=== PATIENT | male | born 1970 | race Caucasian/White ===

== ENCOUNTER 2017-08-18 04:16 | Observation (INO) | payer OTHER ==
[~2017-08-18] VITALS: Ht 190.5 cm; Wt 118.4 kg
[2017-08-18] MEDS ORDERED: ONDANSETRON HCL 4 MG ORAL DISINTEGRATING TAB PO ONE (04:30)
[2017-08-18] MEDS ORDERED: SODIUM CHLORIDE 0.9% 1000ML 1,000 ML IV ONE (04:30)
[2017-08-18 04:39] LABS: BASOPHILS # (AUTO) 0.1 (0.0-0.1); BASOPHILS % 0.5 % (0.0-1.0); EOSINOPHILS # (AUTO) 0.1 (0.0-0.4); EOSINOPHILS % 0.5 % (0.0-6.0); HEMATOCRIT 41.8 % (38.2-49.6); HEMOGLOBIN 15.4 g/dL (14.0-18.0); LYMPHOCYTES # (AUTO) 1.4 (1.0-3.2); MEAN CORPUSCULAR HEMOGLOBIN 35.4 pg (28-32); MEAN CORPUSCULAR HGB CONC 36.8 g/dL (31-35); MEAN CORPUSCULAR VOLUME 96.1 fL (81-99); MONOCYTES # (AUTO) 1.8 (0.2-0.8); MONOCYTES % 19.1 % (4.4-11.3); NEUTROPHILS % 63.6 % (38.7-80.0); PLATELET COUNT 231 x10e3/uL (140-360); RED BLOOD COUNT 4.35 x10e6/uL (4.3-5.7); RED CELL DISTRIBUTION WIDTH 13.1 % (11.7-14.4)
[2017-08-18 04:44] LABS: CLARITY,URINE CLEAR (CLEAR); COLOR,URINE YELLOW (YELLOW); KETONES,URINE 1+ (NEGATIVE); LEUKOCYTE ESTERASE ,URINE NEGATIVE (NEGATIVE); NITRITE,URINE NEGATIVE (NEGATIVE); PROTEIN,URINE DIPSTICK NEGATIVE (NEGATIVE); URINE UROBILINOGEN 0.2 mg/dL (0.2 - 1)
[2017-08-18 04:45] LABS: BILIRUBIN,URINE 1+ (NEGATIVE)
[2017-08-18 04:52] LABS: BACTERIA,URINE FEW /HPF; EPITHELIAL CELLS,URINE FEW /LPF; RBC,URINE 0-5 /HPF (0-5); WBC,URINE (MAN) 0-5 /HPF (0-5)
[2017-08-18 04:59] LABS: ALANINE AMINOTRANSFERASE 34 IU/L (0-55); ALBUMIN 3.8 g/dL (3.5-5.0); ALKALINE PHOSPHATASE 79 IU/L (40-150); ANION GAP 21.7 mmol/L (8-16); BLOOD UREA NITROGEN 10 mg/dL (7-26); BUN/CREATININE RATIO 10 (6-25); CALCIUM 9.9 mg/dL (8.4-10.2); CARBON DIOXIDE 20 mmol/L (22-29); CHLORIDE 96 mmol/L (98-107); CREATININE, SERUM 1.02 mg/dL (0.72-1.25); EST GLOMERULAR FILTRATION RATE > 60 ML/MIN (60-); GLUCOSE 176 mg/dL (74-118); POTASSIUM 3.7 mmol/L (3.5-5.1); SODIUM 134 mmol/L (136-145)
[2017-08-18] MEDS ORDERED: ONDANSETRON HCL 4 MG ORAL DISINTEGRATING TAB PO PRN (05:15)
[2017-08-18] MEDS ORDERED: DEXTROSE 50% SYRINGE 50 ML IV PRN (05:15)
[2017-08-18] MEDS: DEXAMETHASONE SOD PHOS INJ 4 MG/ML VIAL IV SCH ×3 (06:17→22:26)
[2017-08-18] MEDS: SODIUM CHLORIDE 0.9% 1000ML 1,000 ML IV SCH ×2 (06:17→12:06)
[2017-08-18 06:40] VITALS: BP 156/97
[2017-08-18 07:45] VITALS: BP 156/97
[2017-08-18] MEDS: INSULIN REGULAR, HUMAN 100 UNIT/1 ML 3ML VIAL SQ SCH ×4 (07:59→21:00)
[2017-08-18] MEDS: METOCLOPRAMIDE HCL 10 MG TAB PO SCH ×4 (09:00→20:30)
[2017-08-18] MEDS ORDERED: GADOBENATE DIMEGLUMINE 1 ML IV ONE (09:32)
[2017-08-18] MEDS: HYDROCODONE/APAP 7.5MG-325MG 1 EA TAB PO PRN ×3 (11:04→22:26)
--- NOTE | 2017-08-18 12:00 | Diagnostic Imaging Report ---
Exam: Brain MRI without and with IV contrast History: Evaluate for metastases response to chemotherapy, sinus cancer Comparison studies: None Technique: Precontrast sagittal and axial T2 FS, axial T1 FLAIR and axial T2*GRE. Post contrast axial T2 FLAIR and axial, coronal and sagittal T1 FS. Intravenous contrast: 20 cc MultiHance. Findings: Per reported history, patient is with history of sinus cancer. The patient appears to have undergone previous endoscopic sinonasal surgery with bilateral medial antrostomies, partial ethmoidectomies bilateral middle turbinate reduction possibly bilateral sphenoid sinusotomies. There is reactive nonspecific inflammatory mucosal thickening throughout the ethmoids, maxillary sinuses and sphenoid sinuses with bilateral maxillary sinus retention cysts and secretions throughout the ethmoids and sphenoid sinuses. There is enhancing soft tissue which presumably reflects tumor within the ethmoid cavity extend to the sphenoid cavity, along the cribriform plate, planum sphenoidale and sella which presumably reflects tumor. Enhancing tissue/presumed tumor extends into the cavernous sinuses bilaterally and into the sella. The pituitary infundibulum is also thickened. Soft tissue local extends into the extraconal space and orbit posteriorly on the left where it infiltrates the extraocular muscles near the orbital apex and encases the left orbital nerve at the orbital apex and within its intracanalicular segment. The left intracanalicular and intracranial optic nerve is enhancing which may be reactive due to left optic neuropathy. Please note, cannot adequately differentiate tumor from infection in this context. A 2.2 x 1.9 x 2.5 cm (SI x AP x TV) enhancing lesion with central arthrosis in the right temporal lobe is with moderate surrounding edema. Mass effect remains local with only mild effacement on the temporal horn of the right lateral ventricle. There are additional similar smaller enhancing lesions with surrounding vasogenic edema along the bilateral gyri recti and olfactory gyri of the anterior inferior frontal lobes. The largest of these lesions measures 0.9 x 1.7 x 0.6 cm (SI x AP x TV) along the right gyrus rectus. These lesions are without associated restricted diffusion. Though these lesions may reflect direct extension of metastatic disease through the right cavernous sinus/sinonasal cavity and anterior cranial fossa respectively, infection with nonpyrogenic abscesses and cerebritis related to superimposed sinusitis cannot be differentiated. There is reactive dural enhancement along the medial temporal convexities along the cavernous sinuses as well as along the left inferior frontal and anterolateral left temporal convexity. Enhancement within the left sphenoid wing may reflect metastasis in the clinical setting of sinonasal cancer. Enhancement in the basisphenoid of the clivus with associated retroclival dural enhancement may also reflect metastatic disease, though again difficult to differentiate from infection. No acute ischemia. A nonspecific 3 focus of increased susceptibility/decreased signal on T2*GRE sequence in the right putamen may reflect dystrophic mineralization or possibly small hemorrhage. The right temporal horn is partially effaced as described above. The remaining lateral, third and fourth ventricles are mildly dilated without evidence of acute hydrocephalus. Suprasellar region: No abnormalities. Craniocervical junction: Patent foramen magnum. No Chiari one malformation. Vessels: Normal flow-voids in the arteries and sinuses. Incidental findings: Nonspecific reactive T2 hyperintense changes in the mastoids. IMPRESSION: 1. Changes of sinonasal surgery with nonspecific reactive changes throughout the paranasal sinuses and ill-defined enhancing sinonasal mass/presumed tumor which infiltrates the floor of the anterior cranial fossa, left orbit, central skull base, sella, pituitary infundibulum and bilateral cavernous sinuses as described. Moreover, sinonasal/skull base infection cannot be differentiated from tumor in this context. 2. Enhancing lesions in the right temporal lobe and anterior inferior frontal lobes with surrounding vasogenic edema may reflect metastatic disease. Moreover, superimposed infection with nonpyogenic abscesses, meningitis and cerebritis could have this appearance. Mass effect remains local. No herniation. 3. Mild ventriculomegaly. No acute hydrocephalus. Clinical correlation is recommended. Comparison with any prior available outside imaging may also be helpful. Signed by: Dr. Joe Arana M.D. on 08/18/2017 11:56 AM
[2017-08-18 12:04] VITALS: BP 139/87
[2017-08-18] MEDS: PIPER-TAZ 3.375 GM 50 ML IV SCH ×2 (14:30→20:30)
[2017-08-18] MEDS: INSULIN DETEMIR 100 UNIT/ML PEN SQ SCH ×2 (15:11→21:00)
--- NOTE | 2017-08-18 15:24 | History and Physical ---
PRIMARY CARE PROVIDER: Dr. Kenan Veras, following him for sinus cancer. CHIEF COMPLAINT: Recalcitrant nausea, vomiting and dehydration. HISTORY OF PRESENT ILLNESS: Mr. Logan is a 46-year-old gentleman who had his last chemo for sinus cancer about 2 weeks ago. He has had recalcitrant nausea and vomiting for 10 days and unable to keep anything down, becoming dehydrated. REVIEW OF SYSTEMS: He denies fever, chills or weight loss. He has sinus congestion. He denies sore throat. He denies chest pain or palpitations. He denies shortness of breath, wheezing or cough. He denies abdominal pain, but he does have nausea and vomiting. He denies diarrhea, melena, hematemesis or hematochezia. He denies dysuria or flank pain. He denies rash or pruritus. He denies bleeding or bruising. He has a headache. He denies vertigo. He denies syncope or focal weakness. He denies depression, agitation, homicidal or suicidal ideation. PAST MEDICAL HISTORY: Significant for longstanding, type-2 diabetes. He apparently does not take any medication for that. Sinus cancer diagnosed in 2012. He had extensive resection at that time followed by radiation and chemotherapy and was in remission for a while. It has recurred in the last year. He now has stage 4 with local recurrence as well as what appears to be a new brain met. MEDICATIONS: He lists no home medications. SURGICAL HISTORY: Aside from the sinus surgery, many years ago he had orthopedic surgery on both ankles for fracture. ALLERGIES: HE HAS NO KNOWN DRUG ALLERGIES. FAMILY HISTORY: Unremarkable. SOCIAL HISTORY: The patient is . Amharic is his primary language. He does not smoke, drink or use illegal drugs. He is generally independently functioning. PHYSICAL EXAMINATION PSYCHIATRIC: He is alert and oriented times 3 with normal mood and affect. CONSTITUTIONAL: He has a normal body habitus. He is in no acute distress. VITAL SIGNS: Blood pressure 139/87. Pulse 100 and regular. Respiratory rate 16. O2 sat 94%. Temperature 96.4. HEENT: Head is atraumatic. His eyes are anicteric. His oropharynx is clear. NECK: Supple with no mass or thyromegaly. LYMPHATIC SYSTEM: He has no palpable cervical, axillary or inguinal adenopathy. CARDIOVASCULAR: His heart has regular rate and rhythm without murmur or extra heart sound. He has no carotid bruit. He has no peripheral edema. He has palpable dorsal pedal pulses. RESPIRATORY: Lungs are clear to auscultation and percussion with normal respiratory effort. GASTROINTESTINAL: Abdomen is soft without organomegaly, masses or tenderness. He has normal bowel sounds present. CUTANEOUS: His skin is warm and dry to touch. No rash or skin breakdown. MUSCULOSKELETAL: His joints are in normal alignment without erythema or swelling. He has no calf tenderness. NEUROLOGIC: Exam is nonfocal. 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 He is otherwise nonfocal with intact cranial nerves and no motor or sensory deficits. DIAGNOSTIC STUDIES: MRI scan of the brain shows extensive changes in the sinuses consistent with old surgery, possible recurrent tumor, cannot rule out sinus infection. Also shows a right temporal lobe metastasis with some surrounding vasogenic edema. His UA is clear. Chemistry shows normal electrolytes. CO2 is 20. Creatinine 1.02 and BUN 10 for a normal GFR. Glucose is 176. Calcium 9.9. His transaminases, bilirubin and alk phos are normal. CBC shows a white count 9.37 with a normal differential. Hemoglobin 15.4, hematocrit 41.8 and platelet count 231,000. IMPRESSION AND PLAN 1. Recalcitrant nausea and vomiting with dehydration. The patient has received about 3 liters of IV fluids. He is starting to feel better. The patient was placed on Pepcid and Reglan. His nausea has improved, and he is started on a clear liquid diet. Will advance as tolerated. 2. Sinus cancer, stage IV. The patient is being followed by oncology. They have been consulted. Will defer to them. 3. What appears to be a new brain metastasis. The patient has been started on dexamethasone 4 mg q.8 h. and, again, oncology has been consulted. 4. Sinusitis. The patient has been started on IV Zosyn empirically. 5. Type-2 diabetes. The patient has been started on Levemir and sliding scale insulin. 6. For prophylaxis, the patient will be on Pepcid for GI prophylaxis and SCDs for DVT prophylaxis. No anticoagulation due to the brain met. Job#: [id number]
[2017-08-18 16:05] VITALS: BP 136/92
[2017-08-18] MEDS: FAMOTIDINE 20 MG TAB PO SCH (17:48)
[2017-08-18 20:00] VITALS: BP 156/99
[2017-08-18] MEDS ORDERED: SODIUM CHLORIDE 0.9% 250ML 250 ML ONE (20:15)
[2017-08-19] VITALS (8 sets, daily range): BP systolic 124–159; BP diastolic 60–97
[2017-08-19] MEDS: PIPER-TAZ 3.375 GM 50 ML IV SCH ×4 (02:16→20:53)
[2017-08-19] MEDS: DEXAMETHASONE SOD PHOS INJ 4 MG/ML VIAL IV SCH ×3 (05:24→21:07)
[2017-08-19 07:19] LABS: BASOPHILS % 0.3 % (0.0-1.0); HEMATOCRIT 36.1 % (38.2-49.6); HEMOGLOBIN 13.3 g/dL (14.0-18.0); LYMPHOCYTES # (AUTO) 0.3 (1.0-3.2); LYMPHOCYTES % 4.2 % (18.0-39.1); MEAN CORPUSCULAR HEMOGLOBIN 35.6 pg (28-32); MEAN CORPUSCULAR HGB CONC 36.8 g/dL (31-35); MEAN CORPUSCULAR VOLUME 96.5 fL (81-99); MONOCYTES # (AUTO) 0.6 (0.2-0.8); MONOCYTES % 8.1 % (4.4-11.3); NEUTROPHILS # (AUTO) 6.9 (2.1-6.9); NEUTROPHILS % 86.9 % (38.7-80.0); PLATELET COUNT 201 x10e3/uL (140-360); RED BLOOD COUNT 3.74 x10e6/uL (4.3-5.7)
[2017-08-19] MEDS: INSULIN REGULAR, HUMAN 100 UNIT/1 ML 3ML VIAL SQ SCH ×4 (07:30→20:56)
[2017-08-19 07:43] LABS: ALANINE AMINOTRANSFERASE 24 IU/L (0-55); ALBUMIN 3.6 g/dL (3.5-5.0); ALBUMIN/GLOBULIN RATIO 1.1 (0.8-2.0); ALKALINE PHOSPHATASE 66 IU/L (40-150); BLOOD UREA NITROGEN 11 mg/dL (7-26); BUN/CREATININE RATIO 10 (6-25); CALCIUM 9.6 mg/dL (8.4-10.2); CARBON DIOXIDE 23 mmol/L (22-29); CHLORIDE 104 mmol/L (98-107); CREATININE, SERUM 1.15 mg/dL (0.72-1.25); EST GLOMERULAR FILTRATION RATE > 60 ML/MIN (60-); GLUCOSE 218 mg/dL (74-118); SODIUM 137 mmol/L (136-145)
[2017-08-19 07:48] LABS: THYROID STIMULATING HORMONE 0.002 uIU/mL (0.350-4.940)
[2017-08-19] MEDS: FAMOTIDINE 20 MG TAB PO SCH ×2 (08:12→15:43)
[2017-08-19] MEDS: INSULIN DETEMIR 100 UNIT/ML PEN SQ SCH ×2 (08:12→20:54)
[2017-08-19] MEDS: METOCLOPRAMIDE HCL 10 MG TAB PO SCH ×4 (08:12→20:53)
[2017-08-19] MEDS: HYDROCODONE/APAP 7.5MG-325MG 1 EA TAB PO PRN (14:14)
[2017-08-20] VITALS: BP 136/85
[2017-08-20] MEDS: PIPER-TAZ 3.375 GM 50 ML IV SCH ×2 (01:41→08:47)
[2017-08-20] MEDS: HYDROCODONE/APAP 7.5MG-325MG 1 EA TAB PO PRN ×2 (02:45→08:54)
[2017-08-20 04:00] VITALS: BP 136/88
[2017-08-20] MEDS: DEXAMETHASONE SOD PHOS INJ 4 MG/ML VIAL IV SCH (05:43)
[2017-08-20 06:50] LABS: BASOPHILS % 0.1 % (0.0-1.0); HEMATOCRIT 33.3 % (38.2-49.6); HEMOGLOBIN 12.3 g/dL (14.0-18.0); LYMPHOCYTES # (AUTO) 0.5 (1.0-3.2); LYMPHOCYTES % 3.6 % (18.0-39.1); MEAN CORPUSCULAR HEMOGLOBIN 35.8 pg (28-32); MEAN CORPUSCULAR HGB CONC 36.9 g/dL (31-35); MEAN CORPUSCULAR VOLUME 96.8 fL (81-99); MONOCYTES # (AUTO) 0.9 (0.2-0.8); MONOCYTES % 6.5 % (4.4-11.3); NEUTROPHILS # (AUTO) 11.9 (2.1-6.9); NEUTROPHILS % 88.9 % (38.7-80.0); PLATELET COUNT 198 x10e3/uL (140-360); RED BLOOD COUNT 3.44 x10e6/uL (4.3-5.7); RED CELL DISTRIBUTION WIDTH 13.2 % (11.7-14.4)
[2017-08-20 07:16] LABS: ANION GAP 13.1 mmol/L (8-16); BLOOD UREA NITROGEN 15 mg/dL (7-26); BUN/CREATININE RATIO 13 (6-25); CALCIUM 9.8 mg/dL (8.4-10.2); CARBON DIOXIDE 25 mmol/L (22-29); CHLORIDE 103 mmol/L (98-107); CREATININE, SERUM 1.13 mg/dL (0.72-1.25); EST GLOMERULAR FILTRATION RATE > 60 ML/MIN (60-); GLUCOSE 142 mg/dL (74-118); MAGNESIUM 1.9 MG/DL (1.3-2.1); POTASSIUM 4.1 mmol/L (3.5-5.1); SODIUM 137 mmol/L (136-145)
[2017-08-20] MEDS: INSULIN REGULAR, HUMAN 100 UNIT/1 ML 3ML VIAL SQ SCH (07:30)
[2017-08-20 07:34] LABS: FREE T4 (FREE THYROXINE) 1.31 ng/dL (0.9-1.8)
[2017-08-20 08:00] VITALS: BP 133/83
[2017-08-20 08:45] VITALS: BP 133/83
[2017-08-20] MEDS: FAMOTIDINE 20 MG TAB PO SCH (08:47)
[2017-08-20] MEDS: INSULIN DETEMIR 100 UNIT/ML PEN SQ SCH (08:47)
[2017-08-20] MEDS: METOCLOPRAMIDE HCL 10 MG TAB PO SCH (08:47)
[2017-08-20] MEDS ORDERED: DEXAMETHASONE4 MG PO (09:35)
[2017-08-20] MEDS ORDERED: AUGMENTIN 875-1 EACH PO (09:35)
[2017-08-20] MEDS ORDERED: TYLENOL # 31 EA PO (09:35)
--- NOTE | 2017-08-20 18:31 | Discharge Summary ---
ADMISSION DIAGNOSES 1. Recalcitrant nausea and vomiting with dehydration. 2. Sinus cancer, stage IV. 3. Possible new brain mets. 4. Sinusitis. 5. Type 2 diabetes. DISCHARGE DIAGNOSES 1. Recalcitrant nausea and vomiting with dehydration. 2. Sinus cancer, stage IV. 3. Possible new brain mets. 4. Sinusitis. 5. Type 2 diabetes. 6. Anemia. HISTORY: The patient has a history of hypertension, type 2 diabetes, sinus cancer diagnosed in 2012. He had an extensive resection followed by radiation and then chemo, and was in remission for a while. It has recurred in the last year or so. He now has stage IV with local recurrence, as well as what appears to be a new brain mets. HOSPITAL COURSE: A 46-year-old male who had his chemo for sinus cancer about 2 weeks ago, now has nausea and vomiting for 10 days, and unable to keep anything down, which is causing him to become dehydrated. The patient was started on Pepcid, Reglan and IV fluids. He is tolerating a regular diet prior to discharge. Oncology was consulted for sinus cancer and brain mets. He was also started on dexamethasone 4 mg q.8 h. He will continue those until he follows with oncology next Friday. He was started on IV Zosyn empirically for sinusitis, but was discharged on Augmentin for 10 more days. He will continue his same diabetes medications. On admission, MRI of the brain showed enhancing lesions in the right temporal lobe and anterior inferior frontal lobes with surrounding vasogenic edema, which may reflect metastatic disease. WBC on discharge is 13.33 likely due to steroids. The patient is afebrile. Hemoglobin 12.3, hematocrit 33.3. Sodium 137, potassium 4.1, creatinine 1.13, GFR of over 30. The patient is tolerating diet and ready to go home. He will follow up with oncology on Friday and primary care as needed. DICTATED BY NANDO ROBINS NP RAFAL BOWMAN MD Job#: [id number] [place]
== END 2017-08-20 10:00 | disposition home or self-care (01) ==
LOC: ER 04:16 → ERHOLD 05:20 → MED/SURG3 06:27
PROVIDERS: ADMIT Internal Medicine; ATTEND Internal Medicine
DX: E86.0 Dehydration (principal); R11.2 Nausea with vomiting, unspecified; C31.9 Malignant neoplasm of accessory sinus, unspecified; C79.31 Secondary malignant neoplasm of brain; E11.9 Type 2 diabetes mellitus without complications; J32.9 Chronic sinusitis, unspecified; R51 Headache
CPT/HCPCS: 36415 ×2; 80048; 80053; 82948 ×2; 83735; 84439; 84443; 85025 ×2; 96374; 99284; G0378 ×3; J1100 ×3; J2543 ×3; J7030; J7050

== ENCOUNTER 2017-08-31 17:34 | Emergency (ER) | payer OTHER ==
[~2017-08-31] VITALS: Ht 190.5 cm; Wt 118.8 kg
[~2017-08-31 17:34] MED LIST: AUGMENTIN 875-1 EACH PO; DEXAMETHASONE4 MG PO; TYLENOL # 31 EA PO
--- OUTSIDE RECORDS SUMMARY | 2017-08-31 17:36 | XMS REPORT ---
Author Author [facility] Address Unknown Phone Unavailable Care Team Providers Care [employer] St[employer] And Rep[employer]r Name Role Phone RAFAL BOWMAN Unavailable Unavailable Problems This patient has no known problems. Allergies, Adverse Reactions, Alerts This patient has no known allergies or adverse reactions. Medications This patient has no known medications. Results Test Description Test Time Test Comments Text Results Atomic Results Result Comments MRI BRAIN WOW [place] [address] Patient Name: NISHANT CASAS MR #: [id number] : 1970 Age/Sex: 46/M Req # : [id number] Adm Physician: RAFAL BOWMAN MD Ordered by: BHARGAVI ANDERSEN MD Report #: [id number] Location: MED/SURG3 Room/Bed: [facility] ____ Procedure: [id number] MRI/MRI BRAIN WOW Exam Date: Exam Time: REPORT STATUS: Signed Exam: Brain MRI without and with IV contrast History: Evaluate for metastases response to chemotherapy, sinus cancer Comparison studies: None Technique: Precontrast sagittal and axial T2 FS, axial T1 FLAIR and axial T2*GRE. Post contrast axial T2 FLAIR and axial, coronal and sagittal T1 FS. Intravenous contrast: 20 cc MultiHance. Findings: Per reported history, patient is with history of sinus cancer. The patient appears to have undergone previous endoscopic sinonasal surgery with bilateral medial antrostomies, partial ethmoidectomies bilateral middle turbinate reduction possibly bilateral sphenoid sinusotomies. There is reactive nonspecific inflammatory mucosal thickening throughout the ethmoids, maxillary sinuses and sphenoid sinuses with bilateral maxillary sinus retention cysts and secretions throughout the ethmoids and sphenoid sinuses. There is enhancing soft tissue which presumably reflects tumor within the ethmoid cavity extend to the sphenoid cavity, along the cribriform plate, planum sphenoidale and sella which presumably reflects tumor. Enhancing tissue/presumed tumor extends into the cavernous sinuses bilaterally and into the sella. The pituitary infundibulum is also thickened. Soft tissue local extends into the extraconal space and orbit posteriorly on the left where it infiltrates the extraocular muscles near the orbital apex and encases the left orbital nerve at the orbital apex and within its intracanalicular segment. The left intracanalicular and intracranial optic nerve is enhancing which may be reactive due to left optic neuropathy. Please note, cannot adequately differentiate tumor from infection in this context. A 2.2 x 1.9 x 2.5 cm (SI x AP x TV) enhancing lesion with central arthrosis in the right temporal lobe is with moderate surrounding edema. Mass effect remains local with only mild effacement on the temporal horn of the right lateral ventricle. There are additional similar smaller enhancing lesions with surrounding vasogenic edema along the bilateral gyri recti and olfactory gyri of the anterior inferior frontal lobes. The largest of these lesions measures 0.9 x 1.7 x 0.6 cm (SI x AP x TV ) along the right gyrus rectus. These lesions are without associated restricted diffusion. Though these lesions may reflect direct extension of metastatic disease through the right cavernous sinus/sinonasal cavity and anterior cranial fossa respectively, infection with nonpyrogenic abscesses and cerebritis related to superimposed sinusitis cannot be differentiated. There is reactive dural enhancement along the medial temporal convexities along the cavernous sinuses as well as along the left inferior frontal and anterolateral left temporal convexity. Enhancement within the left sphenoid wing may reflect metastasis in the clinical setting of sinonasal cancer. Enhancement in the basisphenoid of the clivus with associated retroclival dural enhancement may also reflect metastatic disease, though again difficult to differentiate from infection. No acute ischemia. A nonspecific 3 focus of increased susceptibility/decreased signal on T2*GRE sequence in the right putamen may reflect dystrophic mineralization or possibly small hemorrhage. The right temporal horn is partially effaced as described above. The remaining lateral, third and fourth ventricles are mildly dilated without evidence of acute hydrocephalus. Suprasellar region: No abnormalities. Craniocervical junction: Patent foramen magnum. No Chiari one malformation. Vessels: Normal flow-voids in the arteries and sinuses. Incidental findings: Nonspecific reactive T2 hyperintense changes in the mastoids. IMPRESSION : 1. Changes of sinonasal surgery with nonspecific reactive changes throughout the paranasal sinuses and ill-defined enhancing sinonasal mass/ presumed tumor which infiltrates the floor of the anterior cranial fossa, left orbit, central skull base, sella, pituitary infundibulum and bilateral cavernous sinuses as described. Moreover, sinonasal/skull base infection cannot be differentiated from tumor in this context. 2. Enhancing lesions in the right temporal lobe and anterior inferior frontal lobes with surrounding vasogenic edema may reflect metastatic disease. Moreover, superimposed infection with nonpyogenic abscesses, meningitis and cerebritis could have this appearance. Mass effect remains local. No herniation. 3. Mild ventriculomegaly. No acute hydrocephalus. Clinical correlation is recommended. Comparison with any prior available outside imaging may also be helpful. Signed by: Dr. Josh Arana M.D. on 08/18/2017 11:56 AM Dictated By: JOSH ARANA MD 1151 Transcribed By: NEVILLE on 08/18/17 1152 COPY TO: BHARGAVI ANDERSEN MD
--- OUTSIDE RECORDS SUMMARY | 2017-08-31 17:36 | XMS REPORT | Continuity of Care Document ---
Author Author [facility] Organization [facility] Address [address] [place] [address] Phone Unavailable Care Team Providers Care Nursing Home Director Name Role Phone NO, PCP PCP Unavailable Advance Directives Directive Response Recorded Date/Time Does the patient have an advance directive? No 08/18/17 7:30am If yes, is advance directive on file with [facility]? No 08/18/17 5:09am If not on file with [facility] will patient provide a copy? No 08/18/17 5:09am Do you have a Directive to Physician? No 08/18/17 5:09am Do you have a Medical Power of [employer] Consultant? No 08/18/17 5:09am Do you have an out of hospital Do Not Resuscitate Order? No 08/18/17 5:09am Do you have any special needs we should be aware of? No 08/18/17 5:09am Do you have a support person here with you today? Yes 08/18/17 5:09am Did patient receive Notice of Privacy Practices? Yes 08/18/17 5:09am Did patient receive patient rights and responsibilities? Yes 08/18/17 5:09am Problems Medical Problem Onset Date Status Dehydration Unknown Vomiting Unknown Medications Current Home Medications Medication Dose Units Route Directions Days Qty Instructions Start Date Acetaminophen/Codeine Phosphate (Tylenol # 3*) 1 Ea Tab 1 Tab Oral Every 12 Hours as needed for Pain 30 08/20/17 Amoxicillin/Potassium Clav (Augmentin 875-125 Tablet) 1 Each Tablet 875 Mg Oral Twice A Day 10 Days 08/20/17 Dexamethasone 4 Mg Tablet 4 Mg Oral Every 8 Hours 7 Days 08/20/17 Social History Social History Problem Response Recorded Date/Time Onset Date Status Hx Psychiatric Problems No 08/18/2017 7:30am Not Applicable Not Applicable Hx Eating Disorder No 08/18/2017 7:30am Not Applicable Not Applicable Hx Substance Use Disorder No 08/18/2017 7:30am Not Applicable Not Applicable Hx Depression No 08/18/2017 7:30am Not Applicable Not Applicable Hx Alcohol Use Y - states "haven't had a drink in awhile now." 08/18/2017 7: 30am Not Applicable Not Applicable Hx Substance Use Treatment No 08/18/2017 7:30am Not Applicable Not Applicable Hx Physical Abuse No 08/18/2017 7:30am Not Applicable Not Applicable Smoking Status Start Date Stop Date Never Smoker Hospital Discharge Instructions No hospital discharge instruction information available. Plan of Care Discharge Date 08/20/17 10:00am Disposition HOME, SELF-CARE Instructions/Education Provided Dehydration - Adult Sinusitis - Acute Prescriptions See Medication Section Referrals (Oncology) Order Date: 5-7 Days Entered Date: 08/20/2017 9:36am Additional Instructions/Education GI SOFT DIET (NO SPICY FOODS) ACTIVITIES TOLERATED FOLLOW UP WITH ONCOLOGY BY FRIDAY Functional Status Query Response Date Recorded Assistive Devices None August 18, 2017 7:45am Ambulation Ability Standby Assistance August 18, 2017 7:45am Toileting Ability Independent August 18, 2017 7:45am Allergies, Adverse Reactions, Alerts No known allergies. Immunizations No immunization information available. Vital Signs Acute Vital Signs Vital Response Date/Time Temperature (Fahrenheit) 96.5 degrees F (97.6 - 99.5) 08/20/2017 8:45am Pulse Pulse Rate (adult) 67 bpm (60 - 90) 08/20/2017 8:45am Respiratory Rate 18 bpm (12 - 24) 08/20/2017 8:45am Blood Pressure 133/83 mm Hg 08/20/2017 8:45am Height 6 ft 3 in 08/18/2017 4:21am Weight 261.01 lb 08/18/2017 7:30am Body Mass Index 32.6 kg/m^2 08/18/2017 7:30am Results Laboratory Results Test Name Result Units Flags Reference Collection Date/Time Result Date/ Time Comments White Blood Count 13.33 x10e3/uL # H 4.8-10.8 08/20/2017 6:2017 6:56am Red Blood Count 3.44 x10e6/uL L 4.3-5.7 08/20/2017 6:08/20/2017 6: 56am Hemoglobin 12.3 g/dL L 14.0-18.0 08/20/2017 6:08/20/2017 6:56am Hematocrit 33.3 % L 38.2-49.6 08/20/2017 6:08/20/2017 6:56am Mean Corpuscular Volume 96.8 fL 81-99 08/20/2017 6:08/20/2017 6: 56am Mean Corpuscular Hemoglobin 35.8 pg H 28-32 08/20/2017 6:2017 6:56am Mean Corpuscular Hemoglobin Concent 36.9 g/dL H 31-35 08/20/2017 6:08/20/2017 6:56am Red Cell Distribution Width 13.2 % 11.7-14.4 08/20/2017 6:2017 6:56am Platelet Count 198 x10e3/uL 140-360 08/20/2017 6:08/20/2017 6: 56am Neutrophils (%) (Auto) 88.9 % H 38.7-80.0 08/20/2017 6:08/20/2017 6 :56am Lymphocytes (%) (Auto) 3.6 % L 18.0-39.1 08/20/2017 6:08/20/2017 6: 56am Monocytes (%) (Auto) 6.5 % 4.4-11.3 08/20/2017 6:08/20/2017 6: 56am Eosinophils (%) (Auto) 0.0 % 0.0-6.0 08/20/2017 6:08/20/2017 6: 56am Basophils (%) (Auto) 0.1 % 0.0-1.0 08/20/2017 6:08/20/2017 6:56am IM GRANULOCYTES % 0.9 % 0.0-1.0 08/20/2017 6:08/20/2017 6:56am Neutrophils # (Auto) 11.9 H 2.1-6.9 08/20/2017 6:08/20/2017 6: 56am Lymphocytes # (Auto) 0.5 L 1.0-3.2 08/20/2017 6:08/20/2017 6: 56am Monocytes # (Auto) 0.9 H 0.2-0.8 08/20/2017 6:08/20/2017 6:56am Eosinophils # (Auto) 0.0 0.0-0.4 08/20/2017 6:08/20/2017 6:56am Basophils # (Auto) 0.0 0.0-0.1 08/20/2017 6:08/20/2017 6:56am Absolute Immature Granulocyte (auto 0.12 x10e3/uL H 0-0.1 08/20/2017 6: 08/20/2017 6:56am Urine Color YELLOW YELLOW 08/18/2017 4:08/18/2017 4:46am Urine Clarity CLEAR CLEAR 08/18/2017 4:08/18/2017 4:46am Urine Specific [place] 1.020 1.010-1.025 08/18/2017 4:2017 4:46am Urine pH 5 5 - 7 08/18/2017 4:08/18/2017 4:46am Urine Leukocyte Esterase NEGATIVE NEGATIVE 08/18/2017 4:2017 4:46am Urine Nitrite NEGATIVE NEGATIVE 08/18/2017 4:08/18/2017 4:46am Urine Protein NEGATIVE NEGATIVE 08/18/2017 4:08/18/2017 4:46am Urine Glucose (UA) NEGATIVE NEGATIVE 08/18/2017 4:08/18/2017 4: 46am Urine Ketones 1+ H NEGATIVE 08/18/2017 4:08/18/2017 4:46am Urine Urobilinogen 0.2 mg/dL 0.2 - 1 08/18/2017 4:08/18/2017 4: 46am Urine Bilirubin 1+ H NEGATIVE 08/18/2017 4:08/18/2017 4:46am Confirmatory test currently unavailable. False positive results may occur. Urine Blood NEGATIVE NEGATIVE 08/18/2017 4:08/18/2017 4:46am Urine WBC 0-5 /HPF 0-5 08/18/2017 4:08/18/2017 4:52am Urine RBC 0-5 /HPF 0-5 08/18/2017 4:2008/18/2017 4:52am Urine Bacteria FEW /HPF NONE 08/18/2017 4:2008/18/2017 4:52am Urine Epithelial Cells FEW /LPF NONE 08/18/2017 4:08/18/2017 4: 52am Sodium Level 137 mmol/L 136-145 08/20/2017 6:08/20/2017 7:18am Potassium Level 4.1 mmol/L 3.5-5.1 08/20/2017 6:08/20/2017 7:18am Chloride Level 103 mmol/L 98-107 08/20/2017 6:08/20/2017 7:18am Carbon Dioxide Level 25 mmol/L 22-08/20/2017 6:08/20/2017 7: 18am Anion Gap 13.1 mmol/L 8-08/20/2017 6:08/20/2017 7:18am Blood Urea Nitrogen 15 mg/dL 7-08/20/2017 6:08/20/2017 7:18am Creatinine 1.13 mg/dL 0.72-1.25 08/20/2017 6:08/20/2017 7:18am BUN/Creatinine Ratio 13 6-08/20/2017 6:08/20/2017 7:18am Estimat Glomerular Filtration Rate > 60 ML/MIN 60- 08/20/2017 6: 7:18am Ranges were taken from the National Kidney Disease Education Program and the National Kid[employer] Foundation literature. Reference ranges: 60 or greater: Normal 16-59 (for 3 consecutive months): Chronic kidney disease 15 or less: Kidney failure Glucose Level 142 mg/dL H 74-118 08/20/2017 6:08/20/2017 7:18am Calcium Level 9.8 mg/dL 8.4-10.2 08/20/2017 6:24am 08/20/2017 7:18am Bedside Glucose 148 mg/dL H 70-120 08/20/2017 7:57am 08/20/2017 8:18am Meter ID: [id number] Magnesium Level 1.9 MG/DL 1.3-2.1 08/20/2017 6:24am 08/20/2017 7:18am Total Bilirubin 1.1 mg/dL 0.2-1.2 08/19/2017 6:49am 08/19/2017 7:44am Aspartate Amino Transf (AST/SGOT) 20 IU/L 5-34 08/19/2017 6:49am 2017 7:44am Alanine Aminotransferase (ALT/SGPT) 24 IU/L 0-55 08/19/2017 6:49am 7:44am Total Protein 6.9 g/dL 6.5-8.1 08/19/2017 6:49am 08/19/2017 7:44am Albumin 3.6 g/dL 3.5-5.0 08/19/2017 6:49am 08/19/2017 7:44am Globulin 3.3 g/dL 2.3-3.5 08/19/2017 6:49am 08/19/2017 7:44am Albumin/Globulin Ratio 1.1 0.8-2.0 08/19/2017 6:49am 08/19/2017 7: 44am Alkaline Phosphatase 66 IU/L 40-150 08/19/2017 6:49am 08/19/2017 7: 44am Free Thyroxine 1.31 ng/dL 0.9-1.8 08/20/2017 6:24am 08/20/2017 7:37am Thyroid Stimulating Hormone (TSH) 0.002 uIU/mL L 0.350-4.940 08/19/2017 6 :49am 08/19/2017 7:49am Procedures Procedure Status Date Provider(s) Magnetic resonance imaging of brain without then with contrast Active BHARGAVI ANDERSEN MD Encounters Encounter Location Arrival/Admit Date Discharge/Depart Date Attending Provider Discharged Inpatient (obs) [facility] 08/18/17 5:20am 10:00am RAFAL BOWMAN MD
[2017-08-31] MEDS ORDERED: SODIUM CHLORIDE FLUSH 10 ML SYR INJ PRN (18:30)
[2017-08-31 18:44] LABS: BASOPHILS % 0.1 % (0.0-1.0); EOSINOPHILS # (AUTO) 0.1 (0.0-0.4); EOSINOPHILS % 1.5 % (0.0-6.0); HEMATOCRIT 35.4 % (38.2-49.6); HEMOGLOBIN 12.4 g/dL (14.0-18.0); LYMPHOCYTES # (AUTO) 1.5 (1.0-3.2); LYMPHOCYTES % 21.5 % (18.0-39.1); MEAN CORPUSCULAR HEMOGLOBIN 35.6 pg (28-32); MEAN CORPUSCULAR VOLUME 101.7 fL (81-99); MONOCYTES # (AUTO) 0.1 (0.2-0.8); MONOCYTES % 0.7 % (4.4-11.3); NEUTROPHILS % 74.7 % (38.7-80.0); PLATELET COUNT 94 x10e3/uL (140-360); RED BLOOD COUNT 3.48 x10e6/uL (4.3-5.7); RED CELL DISTRIBUTION WIDTH 14.4 % (11.7-14.4)
[2017-08-31] MEDS ORDERED: SODIUM CHLORIDE 0.9% 50ML 50 ML ONE (18:44)
[2017-08-31] MEDS ORDERED: KETOROLAC TROMETHAMINE 30 MG/ML VIAL IV ONE (19:00)
[2017-08-31] MEDS ORDERED: HALOPERIDOL LACTATE 5 MG/ML VIAL IM ONE (19:00)
[2017-08-31] MEDS ORDERED: DEXAMETHASONE SOD PHOS 10 MG/1 ML VIAL IV ONE (19:00)
[2017-08-31 19:04] LABS: ANION GAP 12.4 mmol/L (8-16); BLOOD UREA NITROGEN 14 mg/dL (7-26); BUN/CREATININE RATIO 18 (6-25); CARBON DIOXIDE 29 mmol/L (22-29); CHLORIDE 100 mmol/L (98-107); CREATININE, SERUM 0.76 mg/dL (0.72-1.25); EST GLOMERULAR FILTRATION RATE > 60 ML/MIN (60-); GLUCOSE 167 mg/dL (74-118); POTASSIUM 4.4 mmol/L (3.5-5.1); SODIUM 137 mmol/L (136-145)
[2017-08-31 20:13] VITALS: BP 126/78
== END 2017-08-31 20:43 | disposition home or self-care (01) ==
LOC: ER 17:34
DX: G43.909 Migraine, unspecified, not intractable, without status migrainosus (principal); R22.0 Localized swelling, mass and lump, head; C79.31 Secondary malignant neoplasm of brain; E11.9 Type 2 diabetes mellitus without complications; I10 Essential (primary) hypertension
CPT/HCPCS: 36415; 80048; 85025; 99283; J1100; J1630; J1885

== ENCOUNTER 2017-10-08 08:42 | Emergency (ER) | payer OTHER ==
[~2017-10-08] VITALS: Ht 190.5 cm; Wt 125.2 kg
[2017-10-08] MEDS ORDERED: ONDANSETRON HCL INJ 2 MG/ML VIAL IV STA (08:48)
[2017-10-08] MEDS ORDERED: SODIUM CHLORIDE 0.9% 1000ML 1,000 ML IV ONE (09:00)
[2017-10-08] MEDS ORDERED: DEXAMETHASONE SOD PHOS 10 MG/1 ML VIAL IV ONE ×2 (09:00→14:15)
[2017-10-08 09:29] LABS: BASOPHILS # (AUTO) 0.1 (0.0-0.1); BASOPHILS % 0.9 % (0.0-1.0); EOSINOPHILS # (AUTO) 0.1 (0.0-0.4); EOSINOPHILS % 0.7 % (0.0-6.0); HEMATOCRIT 46.4 % (38.2-49.6); HEMOGLOBIN 16.5 g/dL (14.0-18.0); LYMPHOCYTES # (AUTO) 1.3 (1.0-3.2); LYMPHOCYTES % 11.2 % (18.0-39.1); MEAN CORPUSCULAR HEMOGLOBIN 35.1 pg (28-32); MEAN CORPUSCULAR HGB CONC 35.6 g/dL (31-35); MEAN CORPUSCULAR VOLUME 98.7 fL (81-99); MONOCYTES # (AUTO) 1.3 (0.2-0.8); MONOCYTES % 11.6 % (4.4-11.3); NEUTROPHILS # (AUTO) 8.1 (2.1-6.9); NEUTROPHILS % 70.6 % (38.7-80.0); PLATELET COUNT 189 x10e3/uL (140-360); RED CELL DISTRIBUTION WIDTH 15.7 % (11.7-14.4)
[2017-10-08 09:31] LABS: BILIRUBIN,URINE NEGATIVE (NEGATIVE); CLARITY,URINE CLEAR (CLEAR); COLOR,URINE YELLOW (YELLOW); KETONES,URINE NEGATIVE (NEGATIVE); LEUKOCYTE ESTERASE ,URINE NEGATIVE (NEGATIVE); NITRITE,URINE NEGATIVE (NEGATIVE); PROTEIN,URINE DIPSTICK NEGATIVE (NEGATIVE); URINE UROBILINOGEN 1 mg/dL (0.2 - 1)
[2017-10-08 09:45] LABS: ALANINE AMINOTRANSFERASE 49 IU/L (0-55); ALBUMIN 3.8 g/dL (3.5-5.0); ALBUMIN/GLOBULIN RATIO 1.4 (0.8-2.0); ALKALINE PHOSPHATASE 98 IU/L (40-150); ANION GAP 16.9 mmol/L (8-16); BLOOD UREA NITROGEN 9 mg/dL (7-26); BUN/CREATININE RATIO 11 (6-25); CALCIUM 9.6 mg/dL (8.4-10.2); CARBON DIOXIDE 27 mmol/L (22-29); CHLORIDE 101 mmol/L (98-107); CREATININE, SERUM 0.82 mg/dL (0.72-1.25); EST GLOMERULAR FILTRATION RATE > 60 ML/MIN (60-); GLUCOSE 170 mg/dL (74-118); MAGNESIUM 1.6 MG/DL (1.3-2.1); PHOSPHORUS 3.1 MG/DL (2.3-4.7); POTASSIUM 3.9 mmol/L (3.5-5.1); SODIUM 141 mmol/L (136-145)
[2017-10-08 09:48] LABS: BACTERIA,URINE RARE /HPF; EPITHELIAL CELLS,URINE RARE /LPF; WBC,URINE (MAN) 0-5 /HPF (0-5)
[2017-10-08 10:05] LABS: THYROID STIMULATING HORMONE 0.001 uIU/mL (0.350-4.940)
--- NOTE | 2017-10-08 11:05 | Diagnostic Imaging Report ---
PROCEDURE:ABDOMEN ACUTE SERIES W/PA CXR COMPARISON:None. INDICATIONS:SINUS/BRAIN CANCER, INCREASED WEAKNESS OVER THE LAST WEEK FINDINGS: CHEST: Left subclavian central venous port catheter tip projects over the expected region of the superior cavoatrial junction. Lungs are well-expanded and without consolidation, pleural effusion, or pneumothorax. BOWEL PATTERN: No dilated, air-filled loops of bowel. Gas and fecal material are noted throughout the large bowel. SOFT TISSUES: Excreted intravenous contrast material opacifies the upper collecting systems, ureters, and urinary bladder. BONES: Degenerative disc changes of the lumbar spine. No osseous destructive lesions. CONCLUSION: 1. No acute thoracic abnormality. 2. Nonobstructive bowel gas pattern. Dictated by: Joe Ferreira M.D. on 10/08/2017 at 11:09 Electronically approved by: Joe Ferreira M.D. on 10/08/2017 at 11:09
--- NOTE | 2017-10-08 11:40 | Diagnostic Imaging Report ---
ADDENDUM #1 Examination: Head CT without and with contrast. Technique: Axial images through the head were performed without and with intravenous contrast. Intravenous contrast: 100 mL of Isovue 370 Signed by: Dr. Krissy Parikh M.D. on 10/08/2017 11:40 AM ORIGINAL REPORT EXAMINATION: Head CT HISTORY: Severe headache with vomiting, history of sinus/brain cancer, left facial swelling, worsening weakness for the last week COMPARISON: Brain MRI of 08/18/2017 TECHNIQUE: Multidetector axial images were obtained without contrast from the foramen magnum to the vertex . The images were reconstructed using brain and bone algorithms. Thin section brain images were reformatted into coronal and sagittal planes. Intravenous contrast: None. Image quality: Motion/streaking artifact limits the evaluation of the skull base and posterior cranial fossa. FINDINGS: Parenchyma: 1. Interval decrease in size, enhancement and surrounding vasogenic edema of previously seen enhancing lesions in the bilateral medial orbito-frontal gyri and right anterior/inferior temporal lobe. Small residual dystrophic calcifications are seen in the bilateral subfrontal/medial orbital frontal and right temporal pole regions, likely treatment response and/or improved treatment-related changes. 2. No mass or hemorrhage. No CT evidence of acute territorial vascular insult. Extra-axial spaces:No abnormal density. No extra-axial fluid collections Brain volume: Normal for age. Ventricles: No hydrocephalus or displacement. Arteries: No density suggestive of thrombus. Dural sinuses: No abnormal density. Extra-axial spaces: No abnormal density. Foramen magnum: No mass, Chiari malformation, or basilar invagination. Sella: No obvious mass. Paranasal/mastoid sinuses: Partially visualized extensive postoperative changes seen in the sinonasal regions, with persistent nonspecific not significantly enhancing soft tissue density rim along the nasoethmoidal/sphenoidectomy surgical margins. Skull/Scalp: Better visualized on prior MRI anterior cranial fossa skull base changes. IMPRESSION: 1. Interval decrease in size, enhancement and surrounding edema of previously seen enhancing foci in the bilateral orbitofrontal gyri and right temporal lobe as detailed above, no new enhancing lesions. 2. Grossly unchanged sinonasal postoperative changes and nonspecific soft tissue ramus described. Signed by: Dr. Krissy Parikh M.D. on 10/08/2017 11:37 AM
--- NOTE | 2017-10-08 11:53 | Diagnostic Imaging Report ---
EXAMINATION: CT of the face without and with contrast HISTORY: Severe headache with vomiting, history of sinus/brain cancer, left facial swelling, worsening weakness for the last week. COMPARISON: Brain MRI on 08/18/2017 TECHNIQUE: Multidetector helical axial images were acquired through the face without and with contrast and were reconstructed in bone and soft tissue algorithms. Images were viewed in multiplanar format. Intravenous Contrast: 100 mL of Isovue 370 FINDINGS: Bones/paranasal sinuses: -Postoperative changes from prior endoscopic sinonasal surgery with bilateral medial antrostomies, partial ethmoidectomies bilateral middle turbinate reduction possibly bilateral sphenoid sinusotomies. -Accounting for the differences in technique not significantly changed nonspecific and minimally enhancing nodular rim of soft tissue along the margins of the along the right greater than left ethmoidectomy margins and sphenoid lumpectomy margin. -Previously described minimal intracranial extension along the cavernous sinuses is better visualized on prior MRI. -Abnormal signal intensity within the clivus and anterior cranial fossa skull base is also better visualized on prior MRI. -Persistent fullness along the left supraclinoid region and left orbital apex as well as superomedial extraconal extension into the left orbit. -Persistent mild mucosal, the thickening of the bilateral maxillary sinuses. Mildly hyperdense foci are seen along the alveolar ridge bilaterally. Facial soft tissues: No focal swelling or fluid collections.. Paranasal sinuses and drainage pathways: As above. Orbits contents: As above Nasal septum: Left-sided effusion Dentition: No acute abnormality of the visualized teeth. IMPRESSION: 1. No facial soft tissue swelling or fluid collections. 2. Accounting for the differences in technique there has not been significant interval change in previously seen sinonasal postoperative changes and nonspecific mildly enhancing rim of soft tissue mostly at the ethmoidectomy surgical margins when compared to brain MRI on 08/18/2017. Signed by: Dr. Krissy Parikh M.D. on 10/08/2017 11:50 AM
[2017-10-08 14:03] VITALS: BP 111/92
== END 2017-10-08 14:25 | disposition home or self-care (01) ==
LOC: ER 08:42
DX: R53.1 Weakness (principal); R11.2 Nausea with vomiting, unspecified; H53.9 Unspecified visual disturbance; C31.1 Malignant neoplasm of ethmoidal sinus; C79.31 Secondary malignant neoplasm of brain; H05.20 Unspecified exophthalmos
CPT/HCPCS: 36415; 70470; 70488; 74022; 80053; 81001; 83735; 84100; 84443; 85025; 86850; 86900; 99284; J1100; J2405; J7030

== ENCOUNTER 2017-10-23 04:26 | Inpatient (IN) | payer OTHER ==
[2017-10-23] VITALS (65 sets, daily range): BP systolic 75–130; BP diastolic 44–112
[~2017-10-23] VITALS: Ht 193 cm; Wt 128.9 kg
[2017-10-23] MEDS ORDERED: SODIUM CHLORIDE 0.9% 1000ML 1,000 ML IV STA ×2 (04:47→06:22)
[2017-10-23] MEDS ORDERED: VANCOMYCIN 1GM/NS 250 ML 250 ML IV STA (04:47)
[2017-10-23] MEDS ORDERED: ONDANSETRON HCL INJ 2 MG/ML VIAL IV STA ×2 (04:47→05:44)
[2017-10-23] MEDS ORDERED: CEFEPIME HCL 2 GM VIAL IV STA (04:47)
[2017-10-23] MEDS ORDERED: VASOTEC10 M1 PO (04:50)
[2017-10-23] MEDS ORDERED: GLIPIZIDE5 MG PO (04:50)
[2017-10-23] MEDS ORDERED: AMLODIPINE BESY10 MG PO (04:50)
[2017-10-23] MEDS ORDERED: METFORMIN HCL500 MG PO (04:50)
[2017-10-23] MEDS ORDERED: ZOFRAN ODT4 MG SL (04:51)
[2017-10-23] MEDS ORDERED: METHADONE HCL10 MG PO (04:51)
[2017-10-23] MEDS ORDERED: ACETAMINOPHEN 1000 MG/100 ML IV STA (04:56)
[2017-10-23] MEDS ORDERED: DEXAMETHASONE SOD PHOS 10 MG/1 ML VIAL IV ONE (05:00)
[2017-10-23 05:03] LABS: BASOPHILS # (AUTO) 0.1 (0.0-0.1); BASOPHILS % 0.6 % (0.0-1.0); EOSINOPHILS % 0.2 % (0.0-6.0); HEMATOCRIT 43.3 % (38.2-49.6); HEMOGLOBIN 15.2 g/dL (14.0-18.0); LYMPHOCYTES # (AUTO) 2.3 (1.0-3.2); MEAN CORPUSCULAR HEMOGLOBIN 34.8 pg (28-32); MEAN CORPUSCULAR HGB CONC 35.1 g/dL (31-35); MEAN CORPUSCULAR VOLUME 99.1 fL (81-99); MONOCYTES # (AUTO) 1.4 (0.2-0.8); MONOCYTES % 8.8 % (4.4-11.3); NEUTROPHILS # (AUTO) 11.8 (2.1-6.9); NEUTROPHILS % 72.3 % (38.7-80.0); PLATELET COUNT 175 x10e3/uL (140-360); RED BLOOD COUNT 4.37 x10e6/uL (4.3-5.7); RED CELL DISTRIBUTION WIDTH 15.5 % (11.7-14.4)
[2017-10-23 05:07] LABS: INR 1.08; PROTHROMBIN TIME 13.2 seconds (11.9-14.5)
[2017-10-23 05:08] LABS: PARTIAL THROMBOPLASTIN TIME 22.9 seconds (23.8-35.5)
[2017-10-23 05:15] LABS: ALANINE AMINOTRANSFERASE 31 IU/L (0-55); ALBUMIN 3.5 g/dL (3.5-5.0); ALBUMIN/GLOBULIN RATIO 1.2 (0.8-2.0); ALKALINE PHOSPHATASE 100 IU/L (40-150); ANION GAP 17.7 mmol/L (8-16); BLOOD UREA NITROGEN 5 mg/dL (7-26); BUN/CREATININE RATIO 5 (6-25); CALCIUM 9.6 mg/dL (8.4-10.2); CARBON DIOXIDE 24 mmol/L (22-29); CHLORIDE 96 mmol/L (98-107); CREATINE KINASE 15 IU/L (30-200); CREATININE, SERUM 0.92 mg/dL (0.72-1.25); EST GLOMERULAR FILTRATION RATE > 60 ML/MIN (60-); MAGNESIUM 1.4 MG/DL (1.3-2.1); POTASSIUM 3.7 mmol/L (3.5-5.1); SODIUM 134 mmol/L (136-145)
[2017-10-23 05:18] LABS: GLUCOSE 492 mg/dL (74-118)
[2017-10-23 05:19] LABS: BILIRUBIN,URINE NEGATIVE (NEGATIVE); CLARITY,URINE CLEAR (CLEAR); COLOR,URINE YELLOW (YELLOW); KETONES,URINE NEGATIVE (NEGATIVE); LEUKOCYTE ESTERASE ,URINE NEGATIVE (NEGATIVE); NITRITE,URINE NEGATIVE (NEGATIVE); PROTEIN,URINE DIPSTICK NEGATIVE (NEGATIVE); URINE UROBILINOGEN 0.2 mg/dL (0.2 - 1)
[2017-10-23 05:30] LABS: BACTERIA,URINE RARE /HPF; EPITHELIAL CELLS,URINE RARE /LPF
[2017-10-23 05:37] LABS: B-TYPE NATRIURETIC PEPTIDE2 47.1 pg/mL (0-100)
[2017-10-23 05:40] LABS: ABG HCO3 26 mmol/L (23-28); ABG PCO2 33 mmHg (41-51); ABG PO2 61 mmHg (80-105)
[2017-10-23] MEDS ORDERED: SODIUM CHLORIDE 0.9% 50ML 50 ML ONE (05:43)
[2017-10-23] MEDS ORDERED: IOPAMIDOL 370 MG/ML 200 ML INFUS..BTL INJ ONE (05:44)
[2017-10-23] MEDS ORDERED: MORPHINE SULFATE 2 MG/ML SYR IV STA (05:44)
[2017-10-23] MEDS ORDERED: INSULIN REGULAR, HUMAN 100 UNIT/1 ML 3ML VIAL IV ONE (06:00)
[2017-10-23 06:42] LABS: THYROID STIMULATING HORMONE < 0.050 uIU/mL (0.350-4.940)
--- NOTE | 2017-10-23 06:44 | Diagnostic Imaging Report ---
CHEST SINGLE (PORTABLE), 10/23/2017 4:47 AM Technique: CHEST SINGLE (PORTABLE) Comparison: 10/08/2017 Clinical history: Tachycardia Findings: See Impression Impression: 1. Lines/Tubes: Stable left port near the cavoatrial junction. 2. Stable cardiomediastinal silhouette. 3. Low lung volumes with bibasilar vascular crowding/atelectasis. 4. No significant effusion. No pneumothorax. Signed by: Dr Johanny Andersen MD on 10/23/2017 6:41 AM
[2017-10-23] MEDS ORDERED: IBUPROFEN 400 MG TAB PO STA (06:48)
[2017-10-23] MEDS ORDERED: IBUPROFEN 400 MG TAB ONE (06:50)
[2017-10-23 06:56] LABS: LYMPHOCYTES % (MANUAL) 16 % (19-48); METAMYELOCYTES % (MANUAL) 1 % (0-0); MONOCYTES % (MANUAL) 7 % (3.4-9.0); MYELOCYTES % (MANUAL) 2 % (0-0); NEUTROPHILS % (MANUAL) 72 % (40-74); PLATELET ESTIMATE ADEQUATE
[2017-10-23 06:57] LABS: ANISOCYTOSIS SLIGHT; PLATELET MORPHOLOGY COMMENT NORMAL; POIKILOCYTOSIS SLIGHT; RBC MORPHOLOGY COMMENT NORMAL
[2017-10-23] MEDS ORDERED: DEXTROSE 50% SYRINGE 50 ML IV PRN (07:15)
[2017-10-23] MEDS ORDERED: SODIUM CHLORIDE 0.9% 1000ML 1,000 ML IV SCH ×2 (07:15)
[2017-10-23] MEDS ORDERED: MORPHINE SULFATE 2 MG/ML SYR IV PRN (07:15)
[2017-10-23] MEDS ORDERED: ONDANSETRON HCL INJ 2 MG/ML VIAL IV PRN (07:15)
[2017-10-23] MEDS ORDERED: ACETAMINOPHEN 1000 MG/100 ML IV PRN (07:15)
--- NOTE | 2017-10-23 07:27 | Diagnostic Imaging Report ---
Exam: Head CT without IV contrast and maxillofacial CT with IV contrast History: Sinus cancer with brain metastases, left eye pain Comparison studies: None Technique: Axial images were obtained from the skull base to the vertex. Coronal and sagittal images reconstructed from the axial data. Intravenous contrast: None Findings: Soft tissues and bones: Mild left periorbital preseptal soft tissue swelling. No postseptal inflammatory changes. No rim enhancing fluid collection to indicate abscess. Again identified are changes of endoscopic sinus surgery with bilateral medial antrostomies, middle turbinate reduction and ethmoidectomies. Unchanged ill-defined heterogeneously enhancing soft tissue mass centered within the ethmoid cavity which has eroded the lateral lamella, fovea ethmoidalis, planum sphenoidale and sella. Mass extends laterally from the left ethmoid cavity into the left orbit through the eroded left lamina papyracea and posterior left orbital roof where it encases the left optic nerve sheath complex and extraocular muscles at their proximal insertion. Ill-defined tumor extends posteriorly from orbital apex into the left superior and inferior orbital fissures, into the left optic canal and left cavernous sinus as well as into the sella with infiltration of the pituitary gland. The infundibulum is also infiltrated and thickened. The right lamina papyracea is also eroded posteriorly and there is narrowing at the orbital apex related to tumor extension or mass effect from adjacent sinus tumor or inflammation. There is moderate erosion of the left anterior clinoid process and left sphenoid wing. Brain sulci: Appropriate for age. Ventricles: Mildly dilated ventricles, unchanged. No acute hydrocephalus. Extra-axial spaces: Persistent enhancing tissue extends to the dura from the eroded left sphenoid wing along the left anterior temporal convexity and along the anterior inferior left frontal convexity without significant mass effect. Parenchyma: Ill-defined partially calcified lesion in the right inferior temporal lobe with surrounding edema as well as similar calcified lesions along the gyri recti and olfactory gyri at the skull base are unchanged.. Sellar/suprasellar region: No abnormalities. Craniocervical junction: Patent foramen magnum. No Chiari one malformation. Orbits: See soft tissues above. Globe and lens are intact. No retrobulbar hematoma. No preseptal periorbital inflammatory changes. No abscess. Paranasal sinuses: Persistent peripheral mucosal thickening with retention cysts in the bilateral maxillary sinuses as well as mucosal thickening in the bilateral frontal sinuses with obstructed bilateral frontoethmoidal recesses. Medial antrostomies are patent. Residual ethmoid air cells which are not occupied by tumor are partially opacified. Incidental findings: Mild chronic reactive changes in the left mastoids. Atherosclerotic calcifications in the carotid siphons and left intradural vertebral artery. IMPRESSION: Maxillofacial CT: 1. Left periorbital swelling may reflect cellulitis. No postseptal inflammatory changes or abscess. 2. No other changes from the previous maxillofacial CT of 10/08/2017. 3. Sinonasal postsurgical changes with nonspecific enhancing tissue which presumably reflects tumor centered in the ethmoid cavity which has eroded the anterior skull base, extends into the left orbit, infiltrates the pituitary gland, infundibulum and cavernous sinus as described. 4. Nonspecific inflammatory changes in the paranasal sinuses. Head CT: 1. No acute intracranial abnormalities. 2. Unchanged calcified lesions along the anterior skull base and right temporal lobe with surrounding edema and local extension of tumor to the dura along the anteroinferior left frontal and left temporal convexities. 3. Mild ventriculomegaly. No hydrocephalus. 4. No changes from the previous head CT of 10/08/2017. Signed by: Dr. Joe Arana M.D. on 10/23/2017 7:24 AM
[2017-10-23] MEDS ORDERED: MORPHINE SULFATE INJ 4 MG/ML INJ IV PRN ×2 (07:30→10:30)
[2017-10-23] MEDS ORDERED: METHADONE HCL 10 MG TAB PO PRN (08:15)
[2017-10-23] MEDS ORDERED: ACETAMINOPHEN 325 MG TAB PO PRN (08:30)
[2017-10-23] MEDS: AMLODIPINE BESYLATE 10 MG TAB PO SCH (09:38)
[2017-10-23] MEDS: GLIPIZIDE 5 MG TAB PO SCH (09:38)
[2017-10-23] MEDS: ENALAPRIL MALEATE 10 MG TAB PO SCH ×2 (09:38→17:00)
[2017-10-23] MEDS: PIPER-TAZ 3.375 GM 50 ML IV SCH ×3 (09:38→18:04)
--- NOTE | 2017-10-23 12:39 | Consultation ---
DATE OF CONSULTATION: October 23, 2017 CARDIOLOGY CONSULTATION REQUESTING PHYSICIAN: Dr. Diaz REASON FOR CONSULTATION: Tachycardia. HISTORY OF PRESENT ILLNESS: This is a pleasant 47-year-old male that presented with left eye pain and redness. According to the patient, he started having left eye edema with drainage that he decided to come into the emergency room for evaluation. He has a recent diagnosis of sinus cancer, has been getting chemo and has been on remission. He also stated he had a history of brain cancer and has been on pain medications that have been helping him with his pain. He denied any chest pain, any shortness of breath, any diaphoresis or dizziness. His troponin was negative. EKG showed normal sinus rhythm with no ST abnormalities. BNP was 47. Chest x-ray showed low lung volumes. PAST MEDICAL HISTORY: Hypertension, diabetes, sinus cancer, brain cancer, and obesity. PAST SURGICAL HISTORY: Bilateral leg surgery, sinus surgery and Port-A-Cath placement. FAMILY HISTORY: Noncontributory. SOCIAL HISTORY: No smoking, no drinking. He lives at home with mom. MEDICATIONS: See med list. ALLERGIES: SHE IS NOT ALLERGIC TO ANY MEDICATION. REVIEW OF SYSTEMS: Negative except those mentioned above. He has left eye edema. PHYSICAL EXAMINATION: VITAL SIGNS: Temperature 99, heart rate 133, respirations 20, blood pressure 128/99. Oxygen saturation 96% on room air. GENERAL: He is obese, awake, alert and oriented x3. HEENT: Mucous membrane moist. Left eye red and swollen. NECK: Supple. LUNGS: Bilateral clear to auscultation. CARDIOVASCULAR: S1, S2 present. ABDOMEN: Soft. NEUROLOGICAL: Intact. EXTREMITIES: With no edema. LABORATORY DATA: Sodium 134, potassium 3.7, chloride 96, CO2 24, BUN 5, creatinine 0.92, glucose 492. White blood cells 16.24, red blood cells 4.37, hemoglobin 15.2, hematocrit 43.3, and platelets 175. IMPRESSION 1. Sinus tachycardia. 2. Hypertension. 3. History of sinus cancer. 4. History of brain cancer. 5. Obesity. 6. Diabetes. 7. Left eye edema, possible cellulitis. ASSESSMENT AND PLAN: We will go ahead and get an echocardiogram to assess the LV and the valve function. We will check TSH, put him on low-dose beta musa. He has been on antibiotic for the drainage from the left eye. Further cardiac workup pending clinical course. Thank you for this consultation. Dictated by Belem Figueredo NP. Job#: [id number] KEVYN
--- NOTE | 2017-10-23 13:02 | Consultation ---
DATE OF CONSULTATION: October 23, 2017 REASON FOR CONSULTATION: Swelling of the left eye. HISTORY OF PRESENT ILLNESS: This patient said he is here because he is confused. The patient is telling me he has a history of brain cancer, which he had for more than 16 months. He has been seen by Dr. Veras for radiation and chemotherapy. The patient has been having a problem with his left eye for a while from the cancer. He came here because he was confused. He did not know where he was. Patient is currently alert and oriented. The pain in his left eye is better. He is telling me his left eye always looked the same. When he came to the hospital, he was having facial pain, left eye pain, swelling and some drainage from his eye. The patient was started on antibiotic, and he is currently doing much better as mentioned above. PAST MEDICAL HISTORY: Obesity, diabetes mellitus, hypertension, chronic headache, sinus cancer diagnosed in 2012 with brain mets in July 2017. PAST SURGICAL HISTORY: He denies. ALLERGIES: NKA. SOCIAL HISTORY: There is no smoking, drug abuse or alcohol abuse. FAMILY HISTORY: Hypertension. REVIEW OF SYSTEMS: Presently he says he is feeling much better. There is no fever, no chills. His headache is better. Visual changes he denies, but he does have a problem with his left eye. There is pain on the left side of his face, and he said that is better. He does have weakness in his left leg. Review of systems otherwise: HEENT: As above. NECK: Supple. No pain. PULMONARY: No shortness of breath or cough. GI: Negative. : Negative. SKIN: There is no rash. JOINTS: Negative. LABS: White count 16.24. Hemoglobin 15.2. Platelets 175. Sodium 134, potassium 3.7, creatinine 0.92, glucose 492. Blood cultures pending. He had a CT of the brain that showed left periorbital swelling, maybe cellulitis, no abscess. Sinus postsurgical changes with nonspecific enhancing tissue. Face CT showed satellite lesions alongside the anterior skull base and the right temporal lobe. Chest x-ray: No significant effusion. PHYSICAL EXAMINATION GENERAL: He is currently alert and oriented, does not seem to be in acute distress. VITALS: Stable, currently afebrile. HEENT: He does not appear to be icteric. There is protrusion of his left eye. There is congestion in the conjunctivae. NECK: Supple. CHEST: Clear. COR: S1 and S2, no murmur. ABDOMEN: Soft. IMPRESSION: Periorbital cellulitis in a patient who has sinus tumor. Seems to be better I think. He is currently on vancomycin and Zosyn, continue with the same. Continue IV antibiotics for the next few days. Can switch to oral once he is clinically better. Would also like to apply local gentamicin eyedrop. The patient is stable from infectious disease to leave the ICU. Job#: [id number]
[2017-10-23] MEDS: INSULIN REGULAR, HUMAN 100 UNIT/1 ML 3ML VIAL SQ SCH ×2 (13:03→18:00)
--- NOTE | 2017-10-23 13:03 | Consultation ---
DATE OF CONSULTATION: October 23, 2017 ATTENDING DOCTOR: Dr. Diaz. Thank you. Dr. Diaz, for this consultation. HISTORY OF PRESENT ILLNESS: This is a 47-year-old unfortunate gentleman with a past medical history including sinus tumor, status post multiple resection and radiation, admitted through emergency with worsening left eye pain, headache and facial pain. Patient had recent onset of worsening headache and worsening facial swelling including the left eye. He had been following ENT and radiation oncologist. He was also told that he might have some metastatic brain lesion. Patient had brain CT done which showed no acute intracranial abnormality. Patient does have calcified lesion along the anterior skull base and the right temporal lobe with surrounding edema and local extension of tumor to the dura along the anterior inferior left frontal and left temporal convexity. Patient had face CT which shows left orbital swelling, may reflect cellulitis, no nasal postsurgical changes. Patient denies any seizure activity. Patient's admission blood work showed leukocytosis, hyperglycemia. Patient was on steroid. PAST MEDICAL HISTORY: Sinus tumor, surgical resection and radiation. ALLERGIES: NKDA. MEDICATIONS: List reviewed. SOCIAL HISTORY: No current smoking, alcohol or drugs. FAMILY HISTORY: Reviewed, noncontributory. REVIEW OF SYSTEMS: A 12-point review as per the HPI. PHYSICAL EXAMINATION GENERAL: Alert, awake, communicative. HEENT: Patient has left eye swelling, closed. Left facial swelling. NECK: Supple. CHEST: Clear to auscultation. CARDIOVASCULAR: Regular rate and rhythm. ABDOMEN: Soft, nontender. EXTREMITIES: No edema. LABS AND IMAGING: Reviewed. ASSESSMENT AND PLAN: Patient with history of sinus tumor, status post surgery resection, diagnosed in 2013, required multiple surgeries and had one course of radiation treatment in 2013. Patient has worsening disease. Patient has been following with radiation oncology and with ENT. Patient currently in process to go to [facility] for further management. Patient's recent CAT scan shows persistent stable findings with no acute changes. At this point, patient's steroids can be tapered. Continue comfort care. Patient will get benefit through [facility] for further care. Will continue remaining care. Will follow patient closely. Job#: [id number] PUN
[2017-10-23] MEDS ORDERED: NOVOLOG100 UNITS1 SQ (15:01)
[2017-10-23] MEDS ORDERED: INSULIN REGULAR, HUMAN 100 UNIT/1 ML 3ML VIAL SQ ONE (15:30)
[2017-10-23] MEDS: METOPROLOL TARTRATE 25 MG TAB PO SCH (17:00)
[2017-10-23] MEDS ORDERED: INSULIN REGULAR, HUMAN 3ML VL 100 UNIT in SODIUM CHLORIDE 0.45% 100 ML 100 ML IV SCH ×2 (17:53)
[2017-10-23] MEDS: FAMOTIDINE 20 MG TAB PO SCH (18:04)
[2017-10-23] MEDS: VANCOMYCIN 1GM/NS 250 ML 250 ML IV SCH ×2 (18:20→19:02)
[2017-10-23 21:39] LABS: CREATINE KINASE MB 1.1 ng/mL (0-5.0)
[2017-10-24] VITALS (44 sets, daily range): BP systolic 99–165; BP diastolic 71–112
[2017-10-24] MEDS: PIPER-TAZ 3.375 GM 50 ML IV SCH ×4 (00:40→18:24)
[2017-10-24 04:49] LABS: BASOPHILS % 0.2 % (0.0-1.0); EOSINOPHILS % 0.1 % (0.0-6.0); HEMATOCRIT 36.2 % (38.2-49.6); LYMPHOCYTES # (AUTO) 0.7 (1.0-3.2); LYMPHOCYTES % 7.4 % (18.0-39.1); MEAN CORPUSCULAR HEMOGLOBIN 34.6 pg (28-32); MEAN CORPUSCULAR HGB CONC 33.1 g/dL (31-35); MONOCYTES # (AUTO) 0.7 (0.2-0.8); MONOCYTES % 8.1 % (4.4-11.3); NEUTROPHILS # (AUTO) 7.4 (2.1-6.9); NEUTROPHILS % 81.9 % (38.7-80.0); PLATELET COUNT 109 x10e3/uL (140-360); RED BLOOD COUNT 3.47 x10e6/uL (4.3-5.7); RED CELL DISTRIBUTION WIDTH 15.5 % (11.7-14.4)
[2017-10-24 04:58] LABS: MEAN CORPUSCULAR VOLUME 104.3 fL (81-99)
[2017-10-24 05:24] LABS: ALANINE AMINOTRANSFERASE 26 IU/L (0-55); ALBUMIN 2.8 g/dL (3.5-5.0); ALBUMIN/GLOBULIN RATIO 1.1 (0.8-2.0); ALKALINE PHOSPHATASE 82 IU/L (40-150); ANION GAP 12.5 mmol/L (8-16); BLOOD UREA NITROGEN 8 mg/dL (7-26); BUN/CREATININE RATIO 12 (6-25); CALCIUM 8.7 mg/dL (8.4-10.2); CARBON DIOXIDE 24 mmol/L (22-29); CHLORIDE 105 mmol/L (98-107); CHOL/HDL RATIO 2.3 (3.9-4.7); CHOLESTEROL 124 MD/DL (0-199); CREATININE, SERUM 0.66 mg/dL (0.72-1.25); EST GLOMERULAR FILTRATION RATE > 60 ML/MIN (60-); GLUCOSE 151 mg/dL (74-118); HDL CHOLESTEROL 55 MG/DL (40-60); LDL CHOLESTEROL 54 MG/DL (60-130); MAGNESIUM 1.6 MG/DL (1.3-2.1); POTASSIUM 3.5 mmol/L (3.5-5.1); SODIUM 138 mmol/L (136-145); TRIGLYCERIDES 75 MG/DL (0-149)
[2017-10-24 06:07] LABS: FREE THYROXINE INDEX 1.5594 (1.4-3.8); THYROID STIMULATING HORMONE 0.008 uIU/mL (0.350-4.940)
[2017-10-24] MEDS: FAMOTIDINE 20 MG TAB PO SCH ×2 (07:30→16:25)
--- NOTE | 2017-10-24 09:11 | Progress Note ---
DATE: October 24, 2017 SUBJECTIVE: Patient seen and examined today. Patient appears much better. Clinical condition is improving. Denies any worsening event. His blood glucose also went down. Patient followed with ID, currently on antibiotics treatment. PHYSICAL EXAMINATION: GENERAL: Alert, awake, communicative, not in acute distress. HEENT: Normocephalic, atraumatic. Sclerae pale. Conjunctivae clear. NECK: Supple. CHEST: Decreased breath sounds on bases. CARDIOVASCULAR: Regular rate and rhythm. SKIN: He has left facial cellulitis with left eye swelling. ABDOMEN: Soft. EXTREMITIES: No edema. LABS AND IMAGING: Reviewed. ASSESSMENT AND PLAN: Patient with history of sinus tumor, status post surgery, radiation, required multiple surgical resections in past, currently admitted with worsening headache. Patient computerized axial tomography scan did not show any worsening disease. Patient in process of follow with [facility] for further management. At current, recommendation to continue current comfort care. Will monitor patient closely. Job#: [id number]
[2017-10-24] MEDS: VANCOMYCIN 1GM/NS 250 ML 250 ML IV SCH ×2 (09:35→21:24)
[2017-10-24] MEDS: METOPROLOL TARTRATE 25 MG TAB PO SCH ×2 (09:35→16:26)
[2017-10-24] MEDS: GLIPIZIDE 5 MG TAB PO SCH (09:35)
[2017-10-24] MEDS: ENALAPRIL MALEATE 10 MG TAB PO SCH ×2 (09:36→16:26)
[2017-10-24] MEDS: MORPHINE SULFATE 2 MG/ML SYR IV PRN ×2 (09:36→14:34)
[2017-10-24] MEDS: AMLODIPINE BESYLATE 10 MG TAB PO SCH (09:36)
[2017-10-24] MEDS ORDERED: DEXAMETHASONE4 MG PO (12:53)
[2017-10-24] MEDS: HYDROCHLOROTHIAZIDE 25 MG TAB PO SCH (13:13)
[2017-10-24] MEDS: GENTAMICIN SULFATE 0.3% OP 5 ML BTL OP SCH ×2 (13:44→21:24)
--- NOTE | 2017-10-24 14:16 | Consultation ---
DATE OF CONSULTATION: October 24, 2017 ENDOCRINE CONSULTATION This is a patient of Dr. Diaz. Thank you very much for referring this patient. This is a 47-year-old white male gentleman who is referred to me for evaluation of acute hyperglycemia, diabetes mellitus type 2 and low TSH. Patient is a known diabetic for the last several years and takes glipizide 5 mg twice daily. He came to the hospital because of the swelling of the left eye. Patient has stage-IV sinus cancer with periorbital cellulitis and possible metastasis. Patient also has long-standing history of hypertension and obesity. PHYSICAL EXAMINATION GENERAL: Today, the patient is alert, awake, a little bit apprehensive. He has significant cellulitis of the left eye. VITALS: His heart rate is around 78. Blood pressure 130/80 mmHg. HEENT: Essentially unremarkable. Thyroid is palpable. Clinically, he is near euthyroid. CHEST: Bilateral vesicular breathing. He has mild bronchospasm. CARDIAC: First and 2nd heart sounds. There is no 3rd or 4th heart sound. Ejection systolic murmur, grade 2/6. NEURO: Patient has evidence of diabetic sensory neuropathy in both lower extremities. LABS: His blood sugars off the insulin drip have been in the ranges of 145 to 161. Hemoglobin A1c is 7.7. CLINICAL IMPRESSION 1. Diabetes mellitus, type 2, uncontrolled, with complications precipitated by steroids. 2. Cancer of the sinuses with metastases. 3. Periorbital edema. 4. Low thyroid-stimulating hormone, rule out hypothyroidism, could be related to steroids. 5. Hypertension. PLAN: The plan at this time is to taper off the insulin drip. Start him on subcutaneous insulin. Monitor his blood sugars closely and adjust the insulin dose. Thanks for referring this patient. I will be following this patient with you. Job#: [id number]
[2017-10-24 15:20] LABS: FREE T4 (FREE THYROXINE) 0.88 ng/dL (0.9-1.8); THYROID STIMULATING HORMONE 0.002 uIU/mL (0.350-4.940)
[2017-10-24] MEDS: INSULIN LISPRO 100 UNIT/1 ML 3ML VIAL SQ SCH ×3 (16:30→21:00)
[2017-10-24] MEDS: INSULIN DETEMIR 100 UNIT/ML PEN SQ SCH (21:00)
[2017-10-25] VITALS (8 sets, daily range): BP systolic 120–165; BP diastolic 64–110
[2017-10-25] MEDS ORDERED: SODIUM CHLORIDE 0.9% 250ML 250 ML ONE (00:23)
[2017-10-25] MEDS: PIPER-TAZ 3.375 GM 50 ML IV SCH ×4 (00:30→17:52)
[2017-10-25] MEDS: METOPROLOL TARTRATE INJ 1 MG/ML VIAL IV PRN (03:35)
[2017-10-25] MEDS: GENTAMICIN SULFATE 0.3% OP 5 ML BTL OP SCH ×3 (05:56→22:00)
[2017-10-25] MEDS ORDERED: ENALAPRILAT IV INJ 1.25 MG/ML VIAL IV PRN (07:00)
[2017-10-25 07:42] LABS: CHOL/HDL RATIO 2.5 (3.9-4.7); PHOSPHORUS 2.7 MG/DL (2.3-4.7)
[2017-10-25 07:44] LABS: MAGNESIUM 1.1 MG/DL (1.3-2.1)
[2017-10-25] MEDS: AMIODARONE HCL 200 MG TAB PO SCH (08:36)
[2017-10-25] MEDS: GLIPIZIDE 5 MG TAB PO SCH (08:36)
[2017-10-25] MEDS: FAMOTIDINE 20 MG TAB PO SCH ×2 (08:36→17:50)
[2017-10-25] MEDS: VANCOMYCIN 1GM/NS 250 ML 250 ML IV SCH ×2 (08:36→21:45)
[2017-10-25] MEDS: METOPROLOL TARTRATE 25 MG TAB PO SCH ×2 (08:36→17:52)
[2017-10-25] MEDS: AMLODIPINE BESYLATE 10 MG TAB PO SCH (08:36)
[2017-10-25] MEDS: HYDROCHLOROTHIAZIDE 25 MG TAB PO SCH (08:36)
[2017-10-25] MEDS: ENALAPRIL MALEATE 10 MG TAB PO SCH ×2 (08:37→17:52)
[2017-10-25] MEDS: INSULIN LISPRO 100 UNIT/1 ML 3ML VIAL SQ SCH ×7 (09:36→21:00)
[2017-10-25] MEDS: NIFEDIPINE CR 30 MG TAB PO SCH (09:46)
[2017-10-25] MEDS ORDERED: MAGNESIUM SULFATE 2GM/50ML 50 ML IV ONE (10:00)
--- NOTE | 2017-10-25 10:59 | Progress Note ---
DATE: October 25, 2017 The patient was seen and examined today. No events. PHYSICAL EXAMINATION GENERAL: Alert, awake and communicative. HEENT: Normocephalic and atraumatic. Left eye swollen and improving. Left face cellulitis improving. NECK: Supple. CHEST: Clear to auscultation. CARDIOVASCULAR: Regular rate and rhythm. ABDOMEN: Soft. EXTREMITIES: No edema. LABS AND IMAGING: Reviewed. ASSESSMENT AND PLAN: The patient with a history of sinus tumor, status post surgery, radiation. Currently, waiting for followup with [facility]. Clinical condition is improving. Computerized tomography scan did not show any acute findings. Recommendations is continue current treatment. The patient will be followed at [facility]. Will continue current care and follow the patient. Job#: [id number] ANA
[2017-10-25] MEDS: INSULIN DETEMIR 100 UNIT/ML PEN SQ SCH (21:00)
[2017-10-26] VITALS: BP 131/93
[2017-10-26] MEDS: PIPER-TAZ 3.375 GM 50 ML IV SCH ×4 (00:18→17:23)
[2017-10-26 04:00] VITALS: BP_SYST 133; BP_SYST 151; BP_DIAS 103; BP_DIAS 104
[2017-10-26 05:12] LABS: BASOPHILS # (AUTO) 0.1 (0.0-0.1); BASOPHILS % 0.6 % (0.0-1.0); EOSINOPHILS # (AUTO) 0.1 (0.0-0.4); EOSINOPHILS % 0.8 % (0.0-6.0); HEMATOCRIT 41.2 % (38.2-49.6); HEMOGLOBIN 14.1 g/dL (14.0-18.0); LYMPHOCYTES # (AUTO) 1.7 (1.0-3.2); LYMPHOCYTES % 15.4 % (18.0-39.1); MEAN CORPUSCULAR HEMOGLOBIN 34.6 pg (28-32); MEAN CORPUSCULAR HGB CONC 34.2 g/dL (31-35); MONOCYTES % 8.7 % (4.4-11.3); NEUTROPHILS # (AUTO) 7.9 (2.1-6.9); NEUTROPHILS % 71.8 % (38.7-80.0); PLATELET COUNT 157 x10e3/uL (140-360); RED BLOOD COUNT 4.08 x10e6/uL (4.3-5.7); RED CELL DISTRIBUTION WIDTH 15.4 % (11.7-14.4)
[2017-10-26 05:27] LABS: ANION GAP 15.6 mmol/L (8-16); BLOOD UREA NITROGEN < 5 mg/dL (7-26); CARBON DIOXIDE 30 mmol/L (22-29); CHLORIDE 99 mmol/L (98-107); CREATININE, SERUM 0.94 mg/dL (0.72-1.25); EST GLOMERULAR FILTRATION RATE > 60 ML/MIN (60-); GLUCOSE 199 mg/dL (74-118); MAGNESIUM 1.2 MG/DL (1.3-2.1); POTASSIUM 3.6 mmol/L (3.5-5.1); SODIUM 141 mmol/L (136-145)
[2017-10-26 05:28] LABS: BUN/CREATININE RATIO 5 (6-25)
[2017-10-26 05:29] LABS: CALCIUM 10.1 mg/dL (8.4-10.2)
[2017-10-26] MEDS: GENTAMICIN SULFATE 0.3% OP 5 ML BTL OP SCH ×3 (06:00→22:00)
[2017-10-26 07:09] LABS: BAND NEUTROPHILS % (MANUAL) 3 %; LYMPHOCYTES % (MANUAL) 14 % (19-48); MONOCYTES % (MANUAL) 6 % (3.4-9.0); NEUTROPHILS % (MANUAL) 77 % (40-74); PLATELET ESTIMATE ADEQUATE; PLATELET MORPHOLOGY COMMENT NORMAL; RBC MORPHOLOGY COMMENT NORMAL
[2017-10-26 08:00] VITALS: BP 147/108
[2017-10-26] MEDS ORDERED: MAGNESIUM SULFATE 2GM/50ML 50 ML IV ONE (08:30)
[2017-10-26] MEDS: FAMOTIDINE 20 MG TAB PO SCH ×2 (08:53→16:30)
[2017-10-26] MEDS: INSULIN LISPRO 100 UNIT/1 ML 3ML VIAL SQ SCH ×7 (08:54→21:00)
[2017-10-26] MEDS: VANCOMYCIN 1GM/NS 250 ML 250 ML IV SCH ×2 (08:54→22:28)
[2017-10-26] MEDS: GLIPIZIDE 5 MG TAB PO SCH (08:54)
[2017-10-26] MEDS: HYDROCHLOROTHIAZIDE 25 MG TAB PO SCH (08:54)
[2017-10-26] MEDS: AMIODARONE HCL 200 MG TAB PO SCH (08:54)
[2017-10-26] MEDS: MAGNESIUM OXIDE 400 MG TAB PO SCH ×2 (08:55→17:22)
[2017-10-26] MEDS: NIFEDIPINE CR 30 MG TAB PO SCH (08:55)
[2017-10-26] MEDS: ENALAPRIL MALEATE 10 MG TAB PO SCH ×2 (08:55→17:00)
[2017-10-26] MEDS: METOPROLOL TARTRATE 25 MG TAB PO SCH ×2 (08:55→17:00)
[2017-10-26 12:00] VITALS: BP 103/76
[2017-10-26 16:00] VITALS: BP 93/74
[2017-10-26] MEDS ORDERED: DEXTROSE 50% SYRINGE 50 ML IV ONE (16:23)
[2017-10-26] MEDS ORDERED: SODIUM CHLORIDE 0.9% 250ML 250 ML ONE (17:54)
[2017-10-26 18:55] LABS: BASOPHILS # (AUTO) 0.1 (0.0-0.1); BASOPHILS % 0.9 % (0.0-1.0); EOSINOPHILS # (AUTO) 0.1 (0.0-0.4); EOSINOPHILS % 0.5 % (0.0-6.0); HEMATOCRIT 41.4 % (38.2-49.6); HEMOGLOBIN 14.2 g/dL (14.0-18.0); LYMPHOCYTES # (AUTO) 1.9 (1.0-3.2); LYMPHOCYTES % 16.3 % (18.0-39.1); MEAN CORPUSCULAR HEMOGLOBIN 35.2 pg (28-32); MEAN CORPUSCULAR HGB CONC 34.3 g/dL (31-35); MEAN CORPUSCULAR VOLUME 102.7 fL (81-99); MONOCYTES # (AUTO) 0.9 (0.2-0.8); MONOCYTES % 7.7 % (4.4-11.3); NEUTROPHILS # (AUTO) 8.4 (2.1-6.9); PLATELET COUNT 172 x10e3/uL (140-360); RED BLOOD COUNT 4.03 x10e6/uL (4.3-5.7); RED CELL DISTRIBUTION WIDTH 15.4 % (11.7-14.4)
[2017-10-26 19:18] LABS: ALANINE AMINOTRANSFERASE 33 IU/L (0-55); ALBUMIN 2.9 g/dL (3.5-5.0); ALBUMIN/GLOBULIN RATIO 0.9 (0.8-2.0); ALKALINE PHOSPHATASE 81 IU/L (40-150); ANION GAP 15.5 mmol/L (8-16); BLOOD UREA NITROGEN 6 mg/dL (7-26); BUN/CREATININE RATIO 6 (6-25); CALCIUM 10.2 mg/dL (8.4-10.2); CARBON DIOXIDE 28 mmol/L (22-29); CHLORIDE 101 mmol/L (98-107); CREATINE KINASE 23 IU/L (30-200); CREATININE, SERUM 1.02 mg/dL (0.72-1.25); EST GLOMERULAR FILTRATION RATE > 60 ML/MIN (60-); POTASSIUM 3.5 mmol/L (3.5-5.1); SODIUM 141 mmol/L (136-145)
[2017-10-26] MEDS: DEXTROSE 10% 1,000 ML IV SCH (19:30)
[2017-10-26 19:34] LABS: GLUCOSE 46 mg/dL (74-118)
[2017-10-26 20:00] VITALS: BP 100/78
[2017-10-26] MEDS ORDERED: LORAZEPAM INJ 2 MG/ML VIAL IV PRN (21:45)
[2017-10-26] MEDS: METOPROLOL TARTRATE INJ 1 MG/ML VIAL IV PRN (22:14)
[2017-10-27] VITALS (26 sets, daily range): BP systolic 87–136; BP diastolic 57–106
[2017-10-27] MEDS: PIPER-TAZ 3.375 GM 50 ML IV SCH ×4 (01:26→18:00)
--- NOTE | 2017-10-27 01:29 | Diagnostic Imaging Report ---
Examination: CT head without contrast Clinical Indication: Altered mental status. Technique: Transaxial noncontrast images from the skull base through the vertex were obtained. Sagittal and coronal reformatted images were done. Comparison: Head CT performed October 23, 2017. Findings: There is significant motion artifact on the scan. Scalp: No abnormalities. Bones: Intact. No fractures. No blastic or lytic lesions. Brain sulci: Appropriate for patient's age. Ventricles: Unchanged ventriculomegaly. Extra-axial space: No large hemorrhage. Parenchyma: No large masses, large hemorrhage, or large acute or chronic cortical based vascular insults. Suprasellar region: No abnormalities. Craniocervical junction: The foramen magnum is patent. No Chiari one malformation. Additional findings: Prior endoscopic sinus surgery. Unchanged soft tissue mass centered in the ethmoidectomy cavity. Unchanged extension and erosive changes. Please refer to prior head CT performed October 23, 2017 for further detail. Impression: Despite limitation, no large intraparenchymal or extra-axial hemorrhage or large acute territorial infarct when compared to prior CT performed on October 23, 2017. Signed by: Dr. Melva Najera M.D. on 10/27/2017 1:25 AM
[2017-10-27] MEDS: MORPHINE SULFATE 2 MG/ML SYR IV PRN (01:34)
[2017-10-27 05:19] LABS: BASOPHILS # (AUTO) 0.1 (0.0-0.1); BASOPHILS % 0.9 % (0.0-1.0); EOSINOPHILS # (AUTO) 0.1 (0.0-0.4); EOSINOPHILS % 0.7 % (0.0-6.0); HEMATOCRIT 43.1 % (38.2-49.6); HEMOGLOBIN 13.8 g/dL (14.0-18.0); LYMPHOCYTES # (AUTO) 1.3 (1.0-3.2); LYMPHOCYTES % 16.9 % (18.0-39.1); MEAN CORPUSCULAR HEMOGLOBIN 34.5 pg (28-32); MEAN CORPUSCULAR VOLUME 107.8 fL (81-99); MONOCYTES # (AUTO) 0.8 (0.2-0.8); NEUTROPHILS # (AUTO) 5.2 (2.1-6.9); NEUTROPHILS % 69.4 % (38.7-80.0); PLATELET COUNT 123 x10e3/uL (140-360); RED CELL DISTRIBUTION WIDTH 15.5 % (11.7-14.4)
[2017-10-27 05:38] LABS: ANION GAP 16.7 mmol/L (8-16); BLOOD UREA NITROGEN 7 mg/dL (7-26); BUN/CREATININE RATIO 7 (6-25); CALCIUM 9.4 mg/dL (8.4-10.2); CARBON DIOXIDE 24 mmol/L (22-29); CHLORIDE 104 mmol/L (98-107); EST GLOMERULAR FILTRATION RATE > 60 ML/MIN (60-); GLUCOSE 198 mg/dL (74-118); MAGNESIUM 1.8 MG/DL (1.3-2.1); POTASSIUM 3.7 mmol/L (3.5-5.1); SODIUM 141 mmol/L (136-145)
[2017-10-27] MEDS: GENTAMICIN SULFATE 0.3% OP 5 ML BTL OP SCH ×3 (05:43→22:24)
[2017-10-27] MEDS: FAMOTIDINE 20 MG TAB PO SCH ×2 (07:30→16:30)
[2017-10-27] MEDS: INSULIN LISPRO 100 UNIT/1 ML 3ML VIAL SQ SCH ×2 (07:30→18:29)
[2017-10-27] MEDS: VANCOMYCIN 1GM/NS 250 ML 250 ML IV SCH ×2 (09:00→22:24)
[2017-10-27] MEDS: AMIODARONE HCL 200 MG TAB PO SCH (09:00)
[2017-10-27] MEDS: ENALAPRIL MALEATE 10 MG TAB PO SCH ×2 (09:00→17:00)
[2017-10-27] MEDS: METOPROLOL TARTRATE 25 MG TAB PO SCH ×2 (09:00→17:00)
[2017-10-27] MEDS: MAGNESIUM OXIDE 400 MG TAB PO SCH ×2 (09:00→17:00)
[2017-10-27] MEDS: GLIPIZIDE 5 MG TAB PO SCH (09:00)
--- NOTE | 2017-10-27 09:17 | Progress Note ---
DATE: October 27, 2017 The patient appears lethargic and tired. He had an episode of a fall over the weekend. Repeat CT scan did not show any new lesions, bleed or infarction. PHYSICAL EXAMINATION GENERAL: Alert. Appeared fatigued and tired. HEENT: Normocephalic and atraumatic. Left eye swollen slightly. Left-sided facial swelling improving. NECK: Supple. CHEST: Clear to auscultation. CARDIOVASCULAR: Regular rate and rhythm. ABDOMEN: Soft. EXTREMITIES: No edema. LABS AND IMAGING: Reviewed. ASSESSMENT AND PLAN: The patient has a history of sinus cancer, status post surgery and radiation. The patient had recurrent cancer requiring multiple surgical resections. The patient also had left-sided facial cellulitis. Getting intravenous antibiotics and improving. The patient is improving. Sinus tumor. The patient in process of following with [facility]. Will continue remaining care. Will follow the patient closely. Job#: [id number] ANA
[2017-10-27] MEDS ORDERED: ACETAMINOPHEN/CODEINE 300MG - 30MG TAB PO PRN (09:45)
[2017-10-27 10:51] LABS: ABG HCO3 30 mmol/L (23-28); ABG PCO2 39 mmHg (41-51); ABG PO2 72 mmHg (80-105)
--- NOTE | 2017-10-27 11:55 | Diagnostic Imaging Report ---
PROCEDURE: A single AP view of the chest. COMPARISON: 10/23/17 INDICATIONS: AMS FINDINGS: Lines/tubes: Unchanged left chest wall port in place with tip overlying right atrium. Lungs: Limited by body habitus and low lung volumes. Pulmonary vascular congestion. No definite focal consolidation. Pleura: There is no significant pleural effusion or pneumothorax. Heart and mediastinum: The cardiomediastinal silhouette is enlarged, accentuated by technique and low lung volumes. Bones: No acute bony abnormality. IMPRESSION: Enlarged cardiomediastinal silhouette and pulmonary vascular congestion, accentuated by low lung volumes and technique. Dictated by: Jose Mccormick M.D. on 10/27/2017 at 12:01 Electronically approved by: Jose Mccormick M.D. on 10/27/2017 at 12:01
[2017-10-27] MEDS: SODIUM CHLORIDE 0.9% 250ML IRRIG IR SCH ×3 (14:00→22:48)
--- NOTE | 2017-10-27 14:17 | Diagnostic Imaging Report ---
EXAMINATION: Head CT HISTORY: Altered mental status. Status post fall. Hyperglycemia, dehydration, history of sinuses cancer with brain metastases. COMPARISON: Head CT on 10/26/[address] on 10/23/17 TECHNIQUE: Multidetector axial images were obtained without contrast from the foramen magnum to the vertex . The images were reconstructed using brain and bone algorithms. Thin section brain images were reformatted into coronal and sagittal planes. Image quality: Motion/streaking artifact limits the evaluation of the skull base and posterior cranial fossa. FINDINGS: Parenchyma: 1. Unchanged ill-defined partially calcified lesion in the right inferior temporal lobe with surrounding edema as well as similar calcified lesions along the gyri recti and olfactory gyri at the skull base. 2. No mass or hemorrhage. No CT evidence of acute territorial vascular insult. Extra-axial spaces:No abnormal density. No extra-axial fluid collections Brain volume: Normal for age. Ventricles: Persistent ventriculomegaly with effacement of the vertex region sulci, mild degree of compensated hydrocephalus cannot be excluded. Arteries: No density suggestive of thrombus. Dural sinuses: No abnormal density. Extra-axial spaces: No abnormal density. Foramen magnum: No mass, Chiari malformation, or basilar invagination. Sella: No obvious mass. Paranasal/mastoid sinuses: Sinonasal postsurgical changes with nonspecific soft tissue tissue which presumably reflects tumor centered in the ethmoid cavity which has eroded the anterior skull base, extends into the left orbit, infiltrates the pituitary gland, infundibulum and cavernous sinus, better visualized on contrast maxillofacial CT on 10-23-17. Skull/Scalp: No lytic or blastic lesions. No fractures. IMPRESSION: Overall suboptimal study due to motion. 1. Grossly no acute post traumatic intracranial hemorrhage. 2. Unchanged calcified lesions along the bilateral orbitofrontal gyri and right inferior temporal lobe with surrounding vasogenic edema. 3. Persistent mild ventriculomegaly. 4. Grossly stable postoperative changes and residual disease in the paranasal sinuses, please see the dictation of maxillofacial CT on 10/23/17 for further detail. Signed by: Dr. Krissy Parikh M.D. on 10/27/2017 2:13 PM
--- NOTE | 2017-10-27 14:47 | Consultation ---
DATE OF CONSULTATION: PULMONARY/CRITICAL CARE CONSULTATION REFERRING PHYSICIAN: Dr. Diaz. HISTORY OF PRESENT ILLNESS: Patient is a 47-year-old man. He has a history of a malignant sinus cancer. He required multiple resections and subsequent radiation. He came to the hospital complaining of worsening left eye pain, headache and facial pain. He was seen by Oncology and Infectious Disease and felt to have some periorbital cellulitis. He was started on IV antibiotics. Over the past several days, his mental status has diminished. He is not responding as well. A subsequent CT scan showed no bleeding. PAST MEDICAL HISTORY: 1. Diabetes. 2. Hypertension. 3. Sinus cancer with brain metastasis. SOCIAL HISTORY: No prior smoking or alcohol use. PRIOR SURGERIES: Prior resection of the sinuses. FAMILY HISTORY: Family history is significant for hypertension. REVIEW OF SYSTEMS: The patient is afebrile. The vital signs are stable. He has some headache. He has worsening confusion. He has no neck pain. He is not complaining of chest pain. There is no shortness of breath. There is no nausea or vomiting. He has no diarrhea. PHYSICAL EXAMINATION: VITAL SIGNS: The patient is afebrile. The vital signs are stable. HEENT: Examination shows no facial swelling or erythema. The nasal mucosa is normal. The oropharynx is normal. Examination does show some swelling of the left periorbital area. The patient has no nuchal rigidity. LYMPHATIC: Examination shows no submandibular, cervical or supraclavicular adenopathy. CARDIAC: Exam reveals a regular rate and rhythm with a normal S1 and S2. There are no murmurs or rubs. LUNGS: Auscultation reveals clear breath sounds bilaterally. There is no wheezing. ABDOMEN: Is soft and nontender. There is no rebound or guarding. EXTREMITIES: Examination shows no leg edema or calf tenderness. There is no cyanosis or clubbing. SKIN: Examination shows no rashes. LABORATORY DATA: ___White blood cell count is 8.7 with a hemoglobin of 10.5 and a platelet count of 58. ___The white blood cell count is 7.5 with a hemoglobin of 13.8. The platelet count is 123. The KQM-aa-qsmamqtcmv ratio is normal. The blood sugars are in the 200 to 250 range. The pH is 7.5 with a CO2 of 39 and O2 of 72 and a bicarbonate of 30. RADIOGRAPHIC DATA: Chest x-ray shows possible enlarged cardiac silhouette. CT scan of the brain shows no acute abnormalities. There is no hydrocephalus. IMPRESSIONS: 1. Worsening mental status, metabolic encephalopathy. 2. Periorbital cellulitis. 3. History of malignancy of the sinuses. 4. Hyperglycemia. 5. Hypertension. 6. Hyponatremia. PLAN: 1. Continue current antibiotics as recommended by ID. 2. Neurology evaluation. 3. Await results of repeat CT scan. 4. Monitor blood sugars. 5. Case discussed with nursing. Job#: [id number] EV
[2017-10-27] MEDS: DEXTROSE 10% 1,000 ML IV SCH (15:00)
--- NOTE | 2017-10-27 16:31 | Diagnostic Imaging Report ---
PROCEDURE: A single AP view of the chest. COMPARISON: Same date 1107 hrs. INDICATIONS: PICC LINE PLACEMENT FINDINGS: Lines/tubes: Stable left chest wall port with tip overlying right atrium. New right PICC in place with tip overlying brachiocephalic/superior vena cava junction. Lungs: Limited by shallow inspiration and body habitus. Pulmonary vascular congestion. Pleura: There is no significant pleural effusion or pneumothorax. Heart and mediastinum: The cardiomediastinal silhouette is enlarged. Bones: No acute bony abnormality. IMPRESSION: Limited by shallow inspiration and body habitus. New right PICC in place with tip overlying brachiocephalic/superior vena cava junction. No visible pneumothorax. Enlarged cardiomediastinal silhouette and vascular congestion, accentuated by low lung volumes and technique. Dictated by: Jose Mccormick M.D. on 10/27/2017 at 16:37 Electronically approved by: Jose Mccormick M.D. on 10/27/2017 at 16:37
[2017-10-27] MEDS ORDERED: FOSPHENYTOIN IV ONE (18:00)
[2017-10-27] MEDS ORDERED: SODIUM CHLORIDE 0.9% IV ONE (18:00)
--- NOTE | 2017-10-27 19:43 | Diagnostic Imaging Report ---
EXAM: ABDOMEN-1VIEW (KUB), DATE: 10/27/2017 6:25 PM INDICATION: NG tube placement. COMPARISON: None FINDINGS: LINES/TUBES: None BOWEL PATTERN: No evidence for obstruction. SOFT TISSUES: No abnormal calcifications. No mass effect. LUNG BASES: Mid to lower hemithorax bilaterally demonstrate no acute abnormality. BONES: No acute findings. IMPRESSION: NG tube is not visualized; it is either not present, or possibly coiled in the upper thoracic or cervical esophagus. Consider repositioning and follow-up with a chest x-ray including the upper abdomen. Signed by: Dr. Lisette Cagle M.D. on 10/27/2017 7:40 PM
--- NOTE | 2017-10-27 19:48 | Progress Note ---
DATE: October 27, 2017 Mr. Logan became more lethargic and had to be transferred to intensive care unit. He is currently in the intensive care unit. The patient with no fever and no chills. OBJECTIVE GENERAL: Confused. Does not seem to be in acute distress. VITAL SIGNS: Stable, currently afebrile. HEENT: Not icteric. NECK: Supple. CHEST: Clear bilaterally. HEART: S1 and S2, no murmur. ABDOMEN: Soft. IMPRESSION: Altered mental status. RECOMMENDATIONS: Neuro consultation. Neuro did visit the patient and felt that it is indicative of edema in the brain from cancer. Will restart steroids. Discussed with internal medicine. Apparently, it was discontinued earlier upon admission because of elevated glucose. I would recommend to push dexamethasone and to treat hyperglycemia accordingly. Will keep him on IV antibiotics for another day or two just because I am concerned about aspiration, but we can discontinue the antibiotic once he is clinically alert and oriented. Will follow with you. Job#: [id number]
[2017-10-27] MEDS ORDERED: DEXAMETHASONE 4 MG TAB PO SCH (21:00)
[2017-10-27] MEDS ORDERED: INSULIN DETEMIR 100 UNIT/ML PEN SQ SCH (21:00)
--- NOTE | 2017-10-27 21:41 | Consultation ---
DATE OF CONSULTATION: October 27, 2017 NEUROLOGY CONSULTATION HISTORY OF PRESENT ILLNESS: Mr. Logan is a 47-year-old, azkdf-stpp-zjehlyde man with past medical history significant for hypertension, hyperlipidemia, diabetes mellitus type 2, and sinus cancer admitted to [facility] on October 23, 2017, with left periorbital cellulitis. Unfortunately, the patient is encephalopathic at this time. History is obtained from the patient's mother, who is at the bedside. Mr. Logan was brought into the emergency center at [facility] on October 23, 2017, with swelling surrounding his left eye, headache, and facial pain. Mr. Logan was diagnosed as having left periorbital cellulitis. He was admitted to the hospital to receive intravenous antibiotics. Though it is not documented in various notes available through the electronic medical record, the patient's mother reports he was "slightly confused" upon admission. Mr. Logan's mother observed his confusion to progressively worsen throughout his hospitalization. Reportedly, there was significant worsening of the patient's confusion and agitation on the evening of October 26, 2017, which prompted further evaluation with a CT of the brain without contrast. This study was noted to be stable when compared to the previous CT of the brain without contrast performed in the emergency center on October 23, 2017. At approximately 2300 on October 26, 2017, the patient was given Ativan 0.5 mg IV once for treatment of agitation. At approximately 0130 on October 27, 2017, the patient received morphine 1 mg for treatment of pain. At approximately 0530 on October 27, 2017, the patient experienced a fall while in the bathroom. Unfortunately, the fall was not witnessed. Mr. Logan was found on the floor of the bathroom by medical staff. A rapid response was called, and the patient was transferred to the intensive care unit for further monitoring. The patient's ICU nurse reports the patient has been confused and agitated throughout the day. At one point, his sensorium mildly improved, and he was able to tell the nurse his name and location (hospital). Otherwise, the patient has been difficult to arouse and has not answered orientation questions. There has been no witnessed seizure activity. REVIEW OF SYSTEMS: Unable to assess secondary to the patient being encephalopathic. PAST MEDICAL HISTORY: Hypertension, hyperlipidemia, diabetes mellitus type 2, questionable cardiac arrhythmia, sinus cancer diagnosed 2 years ago status post multiple sinus surgeries and chemotherapy. According to the patient's mother, Mr. Logan was told he was in remission in the early summer of 2017. PAST SURGICAL HISTORY: Multiple sinus surgeries for resection of cancerous lesions, rods and pins in both legs following trauma. PAST HOSPITALIZATIONS: Surgeries/procedures as listed. FAMILY MEDICAL HISTORY: The patient's paternal and maternal grandparents are . Their medical histories are unknown. The patient's father is . He had a known history of diabetes mellitus. The patient's mother is alive. She reports an irregular heartbeat requiring placement of a pacemaker. Mr. Logan had 1 brother who is from a motor vehicle accident. He has 2 sisters, both of whom are living. One sister has a prior history of genitourinary cancer. The 2nd sister is healthy. The patient has no biological children. SOCIAL HISTORY: Mr. Logan is single. He completed school through the 11th grade. He works for the [employer] in [place]. The patient's mother does not report current or prior tobacco or recreational drug use. Previously, the patient would drink several beers on the weekends. However, he has not consumed alcohol in the last 4 or 5 months. HOME MEDICATIONS 1. Norvasc 10 mg by mouth daily. 2. Enalapril 20 mg by mouth twice daily. 3. Glipizide 5 mg by mouth daily. 4. Metformin 500 mg by mouth twice daily. 5. NovoLog sliding scale subcutaneously before meals and at bedtime. 6. Zofran 4 mg sublingually every 6 hours as needed for nausea. 7. Methadone 10 mg by mouth every 6 hours as needed for pain. 8. Dexamethasone 2 mg by mouth 3 times daily. ALLERGIES: NO KNOWN DRUG ALLERGIES. NO KNOWN FOOD ALLERGIES. NO KNOWN ALLERGY TO LATEX. NO KNOWN ALLERGIES TO IODINE OR OTHER CONTRAST MATERIALS. PHYSICAL EXAMINATION VITAL SIGNS: Height is 75 inches, weight 270 pounds, BMI 33.7 kg per meter squared. Blood pressure 116/74 mmHg. Pulse 128 beats per minute. Respiratory rate 16 breaths per minute. Oxygen saturation 98% on 4 liters by nasal cannula. GENERAL: The patient is drowsy, arouses briefly to verbal and noxious stimuli. No acute distress. Obese. HEENT: Normocephalic, atraumatic. There is swelling surrounding the left eye. The left pupil is 5 mm and sluggish. The right pupil is 3.5 mm and sluggish. Moist mucous membranes. NECK: Supple. Negative Kernig and Brudzinski signs. No appreciable thyromegaly. No appreciable carotid bruits. CARDIOVASCULAR: S1, S2, regular rhythm, tachycardic. No murmurs, rubs, or gallops. RESPIRATORY: Clear to auscultation bilaterally. No wheezes, rhonchi or rales. EXTREMITIES: The skin is warm and dry. No clubbing, cyanosis, or edema. The posterior tibial and dorsalis pedis pulses are 1+ and symmetric. SKIN: No rashes or lesions. NEUROLOGIC EXAMINATION MEMORY/ATTENTION: The patient is drowsy, arouses briefly to verbal and noxious stimuli. Mr. Logan is not oriented to person, place, time, or situation. CRANIAL NERVES: The left pupil is 5 mm and sluggishly reactive. The right pupil is 3.5 mm and sluggishly reactive. Corneal reflexes are intact bilaterally. The face appears symmetric. Hearing is grossly intact. The soft palate elevates equally and symmetrically. The tongue protrudes midline and moves symmetrically from side to side. STRENGTH: Bulk is normal. Patient moves his extremities equally and symmetrically to central and peripheral noxious stimulation. Tone is normal. DTRs: Deep tendon reflexes are 1+ and symmetric at the triceps, biceps, brachioradialis, and patellas. Deep tendon reflexes are absent and symmetric at the Achilles. Plantar responses are flexor bilaterally. SENSATION: As per motor exam. CEREBELLAR: Unable to assess secondary to the patient being encephalopathic. GAIT: Deferred. SPEECH: Spontaneous speech is very limited. Speech appears to be mildly dysarthric. Unable to adequately assess for aphasia at this time. Repetition is not intact. INVOLUNTARY MOVEMENTS: None. PRONATOR DRIFT: As per motor exam. LABORATORY DATA: Sodium 141, potassium 3.7, chloride 104, carbon dioxide 24, anion gap 16.7. BUN 7, creatinine 1.00, estimated GFR greater than 60, EKQ-ga-lbygjntpyy ratio 7. Glucose 198, calcium 9.4, magnesium 1.8. From October 26, 2017, total bilirubin 2.1, AST 23, ALT 33, alkaline phosphatase 81, total protein 6.1, albumin 2.9, globulin 3.2, stoykcf-kd-aezozlfd ratio 0.9. TSH is 0.008, free T4 index 1.5594, thyroxine (T4) 5.05, T3 uptake 30.88. Hemoglobin A1c 7.7. Total cholesterol 155, triglycerides 109, LDL cholesterol 71, HDL cholesterol 62. CBC with differential and platelets reveals a white blood cell count of 7.50 with 69.4% neutrophils, 16.9% lymphocytes, 10.0% monocytes, 0.7% eosinophils, and 0.9% basophils. The hemoglobin and hematocrit are 13.8 and 43.1, respectively. The platelet count is 123. From October 23, 2017, PT 13.2, INR 1.08, PTT 22.9. An arterial blood gas reveals pH is 7.50, pCO2 of 39, pO2 of 72, bicarbonate 30, oxygen saturation of 96.0, base excess of 7.0, and FiO2 of 38. From October 23, 2017, a urinalysis was significant for 3+ glucose and 11-20 white blood cells. Thyroid peroxidase antibodies 8. Blood cultures drawn on October 23, 2017, show no growth after 72 hours. Repeat blood cultures drawn on October 27, 2017, are pending. A urine culture collected on October 23, 2017, revealed mixed jasmin. DIAGNOSTIC STUDIES 1. Face CT, 10/23/2017: 1) Left periorbital swelling may reflect cellulitis. No postseptal inflammatory changes or abscess. 2) No other changes from the previous maxillofacial CT of 10/08/2017. 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 4) Nonspecific inflammatory changes in the paranasal sinuses. 2. Chest x-ray, 10/23/2017: 1) Lines/tubes stable. Left port near the cavoatrial junction. 2) Stable cardiomediastinal silhouette. 3) Low lung volumes with bibasilar vascular crowding/atelectasis. 4) No significant effusion. No pneumothorax. 3. CT of the brain without contrast, 10/23/2017: On my review, there is no evidence of recent large territorial ischemia, hemorrhage, mass, or mass effect. There are calcified lesions along the anterior skull base as well as a partially calcified right temporal lobe lesion with surrounding vasogenic edema and local extension of the tumor to the dura along the anteroinferior left frontal and left temporal convexities. Mild ventriculomegaly is appreciated. No hydrocephalus. 4. Echocardiogram, 10/23/2017: Ejection fraction is 55% to 60%. Concentric left ventricular hypertrophy. Left atrial enlargement. Trace mitral and tricuspid regurgitation. 5. CT of the brain without contrast, 10/26/2017: No large intraparenchymal or extra-axial hemorrhage or large acute territorial infarct when compared to the prior CT dated October 23, 2017. 6. Chest x-ray, 10/27/2017: Enlarged cardiomediastinal silhouette and pulmonary vascular congestion, accentuated by low lung volumes and technique. 7. CT of the brain without contrast, 10/27/2017: 1) Grossly no acute posttraumatic intracranial hemorrhage. 2) Unchanged calcified lesions along the bilateral orbitofrontal gyri and right inferior temporal lobe with surrounding vasogenic edema. 3) Persistent mild ventriculomegaly. 4) Grossly stable postoperative changes and residual disease in the paranasal sinuses. Please see the dictation of maxillofacial CT on 10/23/2017 for further details. 8. Abdominal x-ray, 10/27/2017: NG tube is not visualized. It is either not present or possibly coiled in the upper thoracic or cervical esophagus. Consider repositioning and follow up with a chest x-ray including the upper abdomen. ASSESSMENT AND PLAN: Mr. Logan is a 47-year-old, [id number]-vkidqfgx man with past medical history as described, admitted to [facility] on October 23, 2017, with left periorbital cellulitis. According to the patient's mother, Mr. Logan was mildly confused upon admission. His confusion and agitation have progressively worsened during his hospitalization. On the evening of October 26, 2017, as well as on the morning of October 27, 2017, the patient experienced 2 falls, as described in the history of present illness. Mr. Logan has undergone a thorough neurological examination with findings documented as above. His laboratory data and other diagnostic studies have been reviewed and are documented above. At present, there is little concern for meningoencephalitis. Mr. Logan has been afebrile for more than 72 hours, his white blood cell count is trending downwards, and his neck is supple on general physical examination with negative Kernig and Brudzinski signs. However, the findings on the patient's multiple CTs of the brain without contrast are concerning and may reveal the etiology of the patient's symptoms. As documented above, the CTs of the brain have demonstrated a partially calcified right temporal lobe mass with surrounding vasogenic edema. Vasogenic edema, when untreated, may cause confusion, generalized weakness, headaches, blurred vision, and agitation. Furthermore, the presence of a mass in the right temporal lobe puts the patient at a greater risk for seizures. RECOMMENDATIONS 1. Mr. Logan will be prescribed dexamethasone 4 mg by mouth every 6 hours for treatment of vasogenic edema. It should be noted, the patient was on dexamethasone 2 mg by mouth 3 times daily at home. However, this medication was not continued during his hospitalization. 2. Due to the concern for subclinical seizure activity, Mr. Logan will receive a loading dose of fosphenytoin 1,200 mg (10 mg per kg) intravenously once. 3. A total phenytoin level will be drawn on the morning of October 28, 2017. 4. Treatment with Dilantin 300 mg by mouth at bedtime daily will begin on the evening of October 28, 2017. 5. A routine EEG 41 to 60 minutes will be performed on October 28, 2017, for further evaluation of seizures. 6. Defer treatment of the remaining medical comorbidities to the primary and other services following the patient. Thank you for this consultation. I will continue to follow the patient while he remains in the hospital. Time spent: 70 minutes. Job#: [id number] SWATHI WELSH
[2017-10-27] MEDS: DEXAMETHASONE 4 MG TAB PO SCH (22:00)
[2017-10-27] MEDS: PHENYTOIN SODIUM IV SCH (22:10)
[2017-10-27] MEDS: SODIUM CHLORIDE 0.9% IV SCH (22:10)
[2017-10-28] VITALS (50 sets, daily range): BP systolic 71–129; BP diastolic 48–107
[2017-10-28] MEDS: INSULIN LISPRO 100 UNIT/1 ML 3ML VIAL SQ SCH ×6 (00:36→21:50)
[2017-10-28] MEDS: PIPER-TAZ 3.375 GM 50 ML IV SCH ×5 (00:38→23:15)
[2017-10-28] MEDS: SODIUM CHLORIDE 0.9% 250ML IRRIG IR SCH ×6 (02:25→21:50)
[2017-10-28] MEDS: DEXAMETHASONE 4 MG TAB PO SCH ×5 (03:17→23:15)
[2017-10-28 04:40] LABS: BASOPHILS % 0.4 % (0.0-1.0); EOSINOPHILS % 0.1 % (0.0-6.0); HEMATOCRIT 37.3 % (38.2-49.6); HEMOGLOBIN 12.6 g/dL (14.0-18.0); LYMPHOCYTES # (AUTO) 0.4 (1.0-3.2); MEAN CORPUSCULAR HEMOGLOBIN 34.3 pg (28-32); MEAN CORPUSCULAR HGB CONC 33.8 g/dL (31-35); MEAN CORPUSCULAR VOLUME 101.6 fL (81-99); MONOCYTES # (AUTO) 0.4 (0.2-0.8); MONOCYTES % 3.8 % (4.4-11.3); NEUTROPHILS # (AUTO) 8.8 (2.1-6.9); NEUTROPHILS % 90.4 % (38.7-80.0); PLATELET COUNT 144 x10e3/uL (140-360); RED BLOOD COUNT 3.67 x10e6/uL (4.3-5.7); RED CELL DISTRIBUTION WIDTH 15.3 % (11.7-14.4)
[2017-10-28 04:59] LABS: ANION GAP 15.9 mmol/L (8-16); BLOOD UREA NITROGEN 12 mg/dL (7-26); BUN/CREATININE RATIO 10 (6-25); CALCIUM 9.2 mg/dL (8.4-10.2); CARBON DIOXIDE 26 mmol/L (22-29); CHLORIDE 104 mmol/L (98-107); CREATININE, SERUM 1.17 mg/dL (0.72-1.25); EST GLOMERULAR FILTRATION RATE > 60 ML/MIN (60-); GLUCOSE 222 mg/dL (74-118); MAGNESIUM 1.7 MG/DL (1.3-2.1); POTASSIUM 3.9 mmol/L (3.5-5.1); SODIUM 142 mmol/L (136-145)
[2017-10-28] MEDS: GENTAMICIN SULFATE 0.3% OP 5 ML BTL OP SCH ×3 (05:54→21:50)
[2017-10-28] MEDS: SODIUM CHLORIDE 0.45% 1,000 ML IV SCH (08:42)
[2017-10-28] MEDS: METOPROLOL TARTRATE 25 MG TAB PO SCH ×2 (09:00→16:39)
[2017-10-28] MEDS: ENALAPRIL MALEATE 10 MG TAB PO SCH (09:00)
[2017-10-28] MEDS: GLIPIZIDE 5 MG TAB PO SCH (09:00)
--- NOTE | 2017-10-28 09:29 | Progress Note ---
DATE: October 28, 2017 The patient was seen and examined today. The patient appeared fatigued, lethargic, tired, and is still mildly confused. PHYSICAL EXAMINATION GENERAL: Alert, awake and communicative. HEENT: Normocephalic and atraumatic with left eye swelling. Sclerae pink. Conjunctivae clear. NECK: Supple. CHEST: Clear to auscultation. CARDIOVASCULAR: Regular rate and rhythm. ABDOMEN: Soft. EXTREMITIES: No edema. LABS AND IMAGING: Reviewed. ASSESSMENT AND PLAN: The patient with a history of multiple medical conditions currently in the hospital with left face cellulitis, worsening confusion. The patient was recently started on dexamethasone by radiation oncologist. It caused his worsening confusion and also causing elevated blood sugar level. The patient's steroids were discontinued. The patient is scheduled for followup with MD Sierra. The patient's imaging at admission did not show any new events or any new edema. The patient is currently following with neurology. The patient was restarted on steroid treatment with antiseizure treatment. Recommendations to follow with neurology recommendations. Current count is stable. Will continue remaining care. The patient will be followed at [facility] for further workup. Will follow the patient. Job#: [id number] ANA
[2017-10-28] MEDS: AMIODARONE HCL 200 MG TAB PO SCH (09:32)
[2017-10-28] MEDS: MAGNESIUM OXIDE 400 MG TAB PO SCH ×2 (09:32→16:40)
[2017-10-28] MEDS: FAMOTIDINE 20 MG TAB PO SCH ×2 (09:32→16:40)
[2017-10-28] MEDS: VANCOMYCIN 1GM/NS 250 ML 250 ML IV SCH ×2 (09:34→21:50)
[2017-10-28] MEDS ORDERED: FOSPHENYTOIN 50 MG/ML VIAL IV STA (14:08)
[2017-10-28] MEDS ORDERED: SODIUM CHLORIDE 0.9% IV ONE (14:30)
[2017-10-28] MEDS ORDERED: FOSPHENYTOIN IV ONE (14:30)
--- NOTE | 2017-10-28 15:38 | Electroencephalogram ---
DATE OF STUDY: October 28, 2017 REQUESTING PHYSICIAN: Dr. Maryjo Greer. 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 The patient is taking the following medications that might affect the EEG: Dilantin. TECHNIQUE: This is a routine, portable EEG, recorded digitally using the International 10-20 Electrode Placement System and done in the inpatient setting with the patient awake and confused. The EEG is adequate for interpretation. DESCRIPTION: Well-organized, well-sustained, 5-6 Hz activity is best seen symmetrically in the posterior head regions. Rare spike-slow wave discharges are observed in the right temporal region. Sleep is not recorded. Photic stimulation produces a driving response. Hyperventilation is not performed. INTERPRETATION: This EEG is abnormal with the patient awake and confused due to the following: Rare epileptiform discharges in the right temporal region suggestive of an underlying structural or electrical disturbance in this region. Clinical correlation is recommended. There is generalized slowing of the background electrocortical activity compatible with a moderate diffuse encephalopathy. Clinical correlation is recommended. Job#: [id number] EV MTDD
[2017-10-28] MEDS ORDERED: PHENYTOIN SODIUM INJ 50 MG/ML 2 ML VIAL IV SCH (21:00)
[2017-10-28] MEDS ORDERED: INSULIN DETEMIR 100 UNIT/ML PEN SQ SCH (21:00)
[2017-10-28] MEDS: PHENYTOIN SODIUM IV SCH (21:50)
[2017-10-28] MEDS: SODIUM CHLORIDE 0.9% IV SCH (21:50)
[2017-10-29] VITALS (34 sets, daily range): BP systolic 89–169; BP diastolic 29–103
[2017-10-29] MEDS: SODIUM CHLORIDE 0.45% 1,000 ML IV SCH ×2 (01:00→16:15)
[2017-10-29] MEDS: SODIUM CHLORIDE 0.9% 250ML IRRIG IR SCH ×2 (02:15→05:20)
[2017-10-29 05:02] LABS: BASOPHILS % 0.2 % (0.0-1.0); HEMATOCRIT 35.1 % (38.2-49.6); HEMOGLOBIN 11.9 g/dL (14.0-18.0); LYMPHOCYTES # (AUTO) 0.4 (1.0-3.2); LYMPHOCYTES % 4.1 % (18.0-39.1); MEAN CORPUSCULAR HEMOGLOBIN 34.2 pg (28-32); MEAN CORPUSCULAR HGB CONC 33.9 g/dL (31-35); MEAN CORPUSCULAR VOLUME 100.9 fL (81-99); MONOCYTES # (AUTO) 0.7 (0.2-0.8); MONOCYTES % 6.3 % (4.4-11.3); NEUTROPHILS # (AUTO) 9.4 (2.1-6.9); NEUTROPHILS % 88.2 % (38.7-80.0); PLATELET COUNT 143 x10e3/uL (140-360); RED BLOOD COUNT 3.48 x10e6/uL (4.3-5.7); RED CELL DISTRIBUTION WIDTH 14.7 % (11.7-14.4)
[2017-10-29] MEDS: GENTAMICIN SULFATE 0.3% OP 5 ML BTL OP SCH ×3 (05:20→21:10)
[2017-10-29] MEDS: PIPER-TAZ 3.375 GM 50 ML IV SCH ×3 (05:20→18:48)
[2017-10-29] MEDS: DEXAMETHASONE 4 MG TAB PO SCH ×4 (05:20→23:19)
[2017-10-29 05:48] LABS: ALBUMIN 2.6 g/dL (3.5-5.0); ALBUMIN/GLOBULIN RATIO 0.9 (0.8-2.0); ANION GAP 16.7 mmol/L (8-16); CALCIUM 8.9 mg/dL (8.4-10.2); CREATININE, SERUM 1.28 mg/dL (0.72-1.25); POTASSIUM 3.7 mmol/L (3.5-5.1)
[2017-10-29] MEDS: INSULIN LISPRO 100 UNIT/1 ML 3ML VIAL SQ SCH ×7 (08:10→21:09)
[2017-10-29] MEDS: FAMOTIDINE 20 MG TAB PO SCH ×2 (08:14→16:30)
[2017-10-29] MEDS: VANCOMYCIN 1GM/NS 250 ML 250 ML IV SCH (08:14)
[2017-10-29] MEDS: MAGNESIUM OXIDE 400 MG TAB PO SCH ×2 (08:15→17:00)
[2017-10-29] MEDS: AMIODARONE HCL 200 MG TAB PO SCH (08:31)
[2017-10-29] MEDS ORDERED: ENALAPRIL MALEATE 10 MG TAB PO SCH ×2 (08:31→09:00)
[2017-10-29] MEDS: METOPROLOL TARTRATE 25 MG TAB PO SCH ×2 (08:32→17:00)
--- NOTE | 2017-10-29 09:04 | Diagnostic Imaging Report ---
PROCEDURE: A single AP view of the chest. COMPARISON: Chest radiograph 10/27/17 and KUB 10/27/17 INDICATIONS: DECREASED OXYGEN SATURATION FINDINGS: Lines/tubes: Interval removal of right sided PICC. Left sided port with tip terminating at the cavoatrial junction. Interval placement of an NG tube, the tip is obscured but likely terminates in the distal esophagus. Overlying EKG leads. Lungs: Low lung volumes. No evidence of consolidation. Mild perihilar opacities. Pleura: There is no pleural effusion or pneumothorax. Heart and mediastinum: The cardiomediastinal silhouette is unchanged. Bones: No acute bony abnormality. IMPRESSION: NG tube tip is obscured but likely terminates likely in the distal esophagus. Recommend advancement by approximately 8 cm and a follow-up abdominal radiograph. Low lung volumes, cannot exclude mild pulmonary interstitial edema. No evidence of pneumonia. Above findings were discussed with CUSTOMER SUCCESS ASSOCIATEMABLE Stallings on 10/29/17 at 908AM. Dictated by: LIZ CAMP M.D. on 10/29/2017 at 9:09 Electronically approved by: LIZ CAMP M.D. on 10/29/2017 at 9:09
--- NOTE | 2017-10-29 09:09 | Progress Note ---
DATE: October 29, 2017 SUBJECTIVE: Patient seen and examined today. Patient appeared comfortable. Clinically doing better. No worsening event noted. PHYSICAL EXAMINATION: GENERAL: Alert, awake, communicative. HEENT: Normocephalic, atraumatic. Sclerae pale. Left eye mild swelling, improving. NECK: Supple. CHEST: Clear to auscultation. CARDIOVASCULAR: Regular rate and rhythm. ABDOMEN: Soft, nontender. EXTREMITIES: No edema. LABS AND IMAGING: Reviewed. ASSESSMENT AND PLAN: Patient with history of multiple medical conditions, include ethmoid cancer, status post multiple surgeries, radiation, admitted with confusion, hyperglycemia, leukocytosis. Computerized axial tomography scan showed no evidence of any acute lesion, currently following neurologist. On steroid, antiseizure medication. Clinical condition is stable. At current, recommendation to continue current care. Clinically doing better. RECOMMENDATION: Outpatient follow with MD Sierra. Will continue remaining care. Will follow patient closely. Job#: [id number]
--- NOTE | 2017-10-29 14:37 | Diagnostic Imaging Report ---
PROCEDURE:X-RAY MODIFIED BARIUM SWALLOW COMPARISON:None. INDICATIONS:Not provided. DISCUSSION:Fluoroscopic examination was performed in conjunction with speech pathology, during swallowing of a variety of thin and thick liquid consistencies. CONCLUSION:No penetration or aspiration. Please see the report from speech pathology for complete details. Dictated by: LIZ CAMP M.D. on 10/29/2017 at 14:42 Electronically approved by: LIZ CAMP M.D. on 10/29/2017 at 14:42
[2017-10-29] MEDS: ENALAPRIL MALEATE 5 MG TAB PO SCH (17:00)
[2017-10-29] MEDS ORDERED: INSULIN DETEMIR 100 UNIT/ML PEN SQ SCH (21:00)
[2017-10-29] MEDS: PHENYTOIN SODIUM IV SCH (21:50)
[2017-10-29] MEDS: SODIUM CHLORIDE 0.9% IV SCH (21:50)
[2017-10-30] VITALS (7 sets, daily range): BP systolic 113–157; BP diastolic 75–104
[2017-10-30] MEDS: PIPER-TAZ 3.375 GM 50 ML IV SCH ×2 (01:34→06:00)
[2017-10-30] MEDS: SODIUM CHLORIDE 0.45% 1,000 ML IV SCH (05:55)
[2017-10-30] MEDS: GENTAMICIN SULFATE 0.3% OP 5 ML BTL OP SCH ×3 (05:55→21:30)
[2017-10-30 06:02] LABS: BASOPHILS % 0.1 % (0.0-1.0); EOSINOPHILS % 0.1 % (0.0-6.0); HEMATOCRIT 31.8 % (38.2-49.6); HEMOGLOBIN 11.1 g/dL (14.0-18.0); LYMPHOCYTES # (AUTO) 0.4 (1.0-3.2); MEAN CORPUSCULAR HEMOGLOBIN 34.3 pg (28-32); MEAN CORPUSCULAR HGB CONC 34.9 g/dL (31-35); MEAN CORPUSCULAR VOLUME 98.1 fL (81-99); MONOCYTES # (AUTO) 0.7 (0.2-0.8); MONOCYTES % 8.2 % (4.4-11.3); NEUTROPHILS # (AUTO) 7.5 (2.1-6.9); NEUTROPHILS % 85.5 % (38.7-80.0); PLATELET COUNT 123 x10e3/uL (140-360); RED BLOOD COUNT 3.24 x10e6/uL (4.3-5.7); RED CELL DISTRIBUTION WIDTH 14.6 % (11.7-14.4)
[2017-10-30] MEDS: DEXAMETHASONE 4 MG TAB PO SCH ×3 (06:02→17:55)
[2017-10-30 06:19] LABS: ANION GAP 12.8 mmol/L (8-16); BLOOD UREA NITROGEN 17 mg/dL (7-26); BUN/CREATININE RATIO 16 (6-25); CALCIUM 9.1 mg/dL (8.4-10.2); CARBON DIOXIDE 26 mmol/L (22-29); CHLORIDE 103 mmol/L (98-107); CREATININE, SERUM 1.05 mg/dL (0.72-1.25); EST GLOMERULAR FILTRATION RATE > 60 ML/MIN (60-); GLUCOSE 111 mg/dL (74-118); MAGNESIUM 1.9 MG/DL (1.3-2.1); POTASSIUM 3.8 mmol/L (3.5-5.1); SODIUM 138 mmol/L (136-145)
[2017-10-30] MEDS: INSULIN LISPRO 100 UNIT/1 ML 3ML VIAL SQ SCH ×7 (08:15→21:29)
[2017-10-30] MEDS: METOPROLOL TARTRATE 25 MG TAB PO SCH ×2 (08:15→17:00)
[2017-10-30] MEDS: ENALAPRIL MALEATE 5 MG TAB PO SCH ×2 (08:15→17:00)
[2017-10-30] MEDS: MAGNESIUM OXIDE 400 MG TAB PO SCH ×2 (08:15→17:00)
[2017-10-30] MEDS: FAMOTIDINE 20 MG TAB PO SCH ×2 (08:15→16:30)
--- NOTE | 2017-10-30 09:11 | Progress Note ---
DATE: October 30, 2017 SUBJECTIVE: The patient was seen and examined today. The patient appeared better. Clinically doing better. No worsening event noted. EXAMINATION GENERAL: Alert, awake, communicative. HEENT: Normocephalic, atraumatic. Sclerae pink. Conjunctivae clear. NECK: Supple. CHEST: Decreased breath sounds on bases. CARDIOVASCULAR: Regular rate and rhythm. ABDOMEN: Soft. EXTREMITIES: No edema. SKIN: The patient has right facial swelling with left eyelid drop. LABS AND IMAGING: Reviewed. ASSESSMENT AND PLAN: The patient with history of multiple medical conditions including sinus tumor, orbital cellulitis. Admitted with pancytopenia, hyperglycemia. Clinical condition is improving. Pain is better controlled with methadone. The patient will continue on dexamethasone. Continue current care. Will monitor the patient closely. The patient can be discharged and followed as outpatient. Job#: [id number] CHRISSY
[2017-10-30] MEDS ORDERED: VANCOMYCIN 1GM/NS 250 ML 250 ML IV SCH (21:00)
[2017-10-30] MEDS ORDERED: INSULIN DETEMIR 100 UNIT/ML PEN SQ SCH (21:00)
[2017-10-30] MEDS ORDERED: PHENYTOIN 50 MG TAB PO SCH (21:00)
[2017-10-31] VITALS (8 sets, daily range): BP systolic 142–162; BP diastolic 88–108
[2017-10-31] MEDS: DEXAMETHASONE 4 MG TAB PO SCH ×3 (00:35→12:28)
[2017-10-31 04:17] LABS: BASOPHILS % 0.2 % (0.0-1.0); EOSINOPHILS % 0.1 % (0.0-6.0); HEMATOCRIT 33.5 % (38.2-49.6); HEMOGLOBIN 11.7 g/dL (14.0-18.0); LYMPHOCYTES # (AUTO) 0.6 (1.0-3.2); LYMPHOCYTES % 7.4 % (18.0-39.1); MEAN CORPUSCULAR HEMOGLOBIN 34.5 pg (28-32); MEAN CORPUSCULAR HGB CONC 34.9 g/dL (31-35); MEAN CORPUSCULAR VOLUME 98.8 fL (81-99); MONOCYTES # (AUTO) 0.8 (0.2-0.8); MONOCYTES % 9.6 % (4.4-11.3); NEUTROPHILS # (AUTO) 6.7 (2.1-6.9); NEUTROPHILS % 81.5 % (38.7-80.0); PLATELET COUNT 139 x10e3/uL (140-360); RED BLOOD COUNT 3.39 x10e6/uL (4.3-5.7); RED CELL DISTRIBUTION WIDTH 14.6 % (11.7-14.4)
[2017-10-31 04:34] LABS: ANION GAP 11.9 mmol/L (8-16); BLOOD UREA NITROGEN 13 mg/dL (7-26); BUN/CREATININE RATIO 13 (6-25); CALCIUM 9.5 mg/dL (8.4-10.2); CARBON DIOXIDE 27 mmol/L (22-29); CHLORIDE 105 mmol/L (98-107); EST GLOMERULAR FILTRATION RATE > 60 ML/MIN (60-); GLUCOSE 118 mg/dL (74-118); MAGNESIUM 1.9 MG/DL (1.3-2.1); POTASSIUM 3.9 mmol/L (3.5-5.1); SODIUM 140 mmol/L (136-145)
[2017-10-31] MEDS: GENTAMICIN SULFATE 0.3% OP 5 ML BTL OP SCH (05:29)
[2017-10-31] MEDS: INSULIN LISPRO 100 UNIT/1 ML 3ML VIAL SQ SCH ×4 (07:30→11:30)
[2017-10-31] MEDS ORDERED: AMIODARONE HCL200 MG PO (07:43)
[2017-10-31] MEDS ORDERED: GENTAK5 ML OP (07:43)
[2017-10-31] MEDS ORDERED: DEXAMETHASONE4 MG PO (07:43)
[2017-10-31] MEDS ORDERED: LOPRESSOR25 MG PO (07:43)
[2017-10-31] MEDS ORDERED: VASOTEC5 MG PO (07:43)
[2017-10-31] MEDS ORDERED: DILANTIN50 MG PO (07:43)
[2017-10-31] MEDS: FAMOTIDINE 20 MG TAB PO SCH (08:01)
[2017-10-31] MEDS ORDERED: AMLODIPINE BESYLATE 10 MG TAB PO SCH (09:00)
--- NOTE | 2017-10-31 09:06 | Progress Note ---
DATE: October 31, 2017 SUBJECTIVE: The patient was seen and examined today. The patient appeared comfortable. Clinical condition has been improving. No worsening event noted. EXAMINATION GENERAL: Alert, awake, communicative. HEENT: Normocephalic, atraumatic. The patient's left eye was with partial ptosis. Left facial swelling. NECK: Supple. No JVD. CHEST: Clear to auscultation. ABDOMEN: Soft, nontender. EXTREMITIES: No edema. LABS AND IMAGING: Reviewed. ASSESSMENT AND PLAN: The patient with history of sinus tumor, status post sinus surgery, radiation treatment, admitted with left-sided facial cellulitis with hyperglycemia and confusion. Clinical condition is improving. The patient likely scheduled for discharge today. At this point, recommend follow up with MD Sierra as an outpatient. Do not recommend any hematological intervention at current. Will monitor the patient very closely. Job#: [id number] CHRISSY
[2017-10-31] MEDS: METOPROLOL TARTRATE 25 MG TAB PO SCH (09:31)
[2017-10-31] MEDS: MAGNESIUM OXIDE 400 MG TAB PO SCH (09:31)
[2017-10-31] MEDS: ENALAPRIL MALEATE 5 MG TAB PO SCH (09:32)
--- NOTE | 2017-10-31 23:41 | Discharge Summary ---
ADMISSION DIAGNOSES 1. Left periorbital cellulitis. 2. Uncontrolled type 2 diabetes. 3. Hypertension. 4. Stage IV sinus cancer. 5. Low thyroid-stimulating hormone. 6. Tachycardia. 7. Urinary tract infection. 8. Hyponatremia. 9. Obesity. DISCHARGE DIAGNOSES 1. Left periorbital cellulitis. 2. Uncontrolled type 2 diabetes. 3. Hypertension. 4. Stage IV sinus cancer. 5. Low thyroid-stimulating hormone. 6. Tachycardia. 7. Urinary tract infection. 8. Hyponatremia. 9. Obesity. 10. Rule out urinary tract infection. 11. Calcified lesion of the anterior skull base and right temporal lobe with surrounding edema. HISTORY: Patient has a history of hypertension, type 2 diabetes, stage IV sinus cancer with resection, radiation and chemo. Surgical history of bilateral ankle fracture repair, sinus surgery for resection of the cancer, and a left Port-A-Cath. HOSPITAL COURSE: A 47-year-old male complains of feeling sedated after taking methadone prescribed by his oncologist on Friday. He took this pill and woke up feeling strange. He says the sugars are high because he does not always take his insulin as prescribed. He says he ran out early and did not get another prescription. He also complains of left eye pain and drainage. He is unable to see out of his left eye and has no extraocular movement in that eye. He also complains of generalized weakness. On admission, ID was consulted and patient started on vancomycin and Zosyn. Patient was started on glipizide and sliding-scale insulin, but his sugars were unable to be controlled and so he was switched to an insulin drip per endo. Hematology/oncology consulted for the sinus cancer. Dietary restrictions for his obesity. The left periorbital cellulitis continued to improve over the next few days in the hospital. Per hematology/oncology , patient was taken off of his steroid as he said he did not need them. He could follow up outpatient with his oncologist if they chose to renew them or not. Over the next couple of days following that, the patient began to become more confused and lethargic. On admission, patient had a CAT scan that showed no acute abnormalities. CAT scan was of the sinuses and head. Maxillofacial CT showed left periorbital swelling that may reflect cellulitis. No other changes from previous CAT scan. The head CT showed no acute intracranial abnormalities. Unchanged calcified lesions along the anterior skull base and right temporal lobe with surrounding edema and local extension of the tumor to the dura along that anteroinferior left frontal and left temporal convexities. Mild ventriculomegaly. No hydrocephalus. Chest x-ray on admission showed low lung volumes with bibasilar atelectasis. No effusion, no pneumothorax. Patient was placed on a low-dose beta musa due to tachycardia. EKG and telemetry showed occasional PVCs and PACs. Patient was also initially placed on amiodarone for a few days per cardiology. At time of discharge, patient does not need amiodarone. He will discharge only with metoprolol. Patient appeared to then develop red man syndrome due to vancomycin; so, IV antibiotics were discontinued per ID. Patient's white count remained normal. Neurology was then consulted due to increasing lethargy. Per neurology, patient was placed back on steroids, initially IV and then p.o. as well as Dilantin for possible seizures. No seizures were noted during hospitalization. Patient was then moved to ICU, had an NG tube placed and was intubated. Modified barium swallow showed no penetration or aspiration. Patient had 4 blood cultures which all came up negative. Urine culture was negative. After being on the steroids for couple more days, patient made steady improvement. He is alert and oriented again, ambulating well with PT with minimal assist. Patient requested to move to [facility], but upon speaking with the doctor in [facility], there are no rooms available and he will have to follow up outpatient. Patient and family understand discharge instructions and agree to plan. He will discharge home with 1. Dexamethasone 4 mg q.6 h. 2. Enalapril 5 b.i.d. 3. Gentamicin eye drops q.8 h. 4. Metoprolol 25 b.i.d. 5. Dilantin 300 nightly. 6. Home medicines of Zofran and Norvasc. He will follow up with endocrinology as needed and [facility] as discussed. Vital signs stable. Patient afebrile. He is ready and excited to go home. Dictated by Prabha Mendoza NP RAFAL BOWMAN MD Job#: [id number]
== END 2017-10-31 13:53 | disposition home or self-care (01) | DRG 871 ==
LOC: ER 04:26 → ERHOLD 07:17 → ICU 08:56 → IMCU 10-24 13:11 → MED/SURG2 10-24 23:13 → ICU 10-27 11:05 → MED/SURG3 10-29 15:41
PROVIDERS: ADMIT Internal Medicine; ATTEND Internal Medicine
PROC: 02HV33Z Insertion of Infusion Device into Superior Vena Cava, Percutaneous Approach (ICD-10-PCS; principal; 2017-10-27)
DX: A41.9 Sepsis, unspecified organism (principal); G93.41 Metabolic encephalopathy; G93.6 Cerebral edema; N17.0 Acute kidney failure with tubular necrosis; L03.213 Periorbital cellulitis; N39.0 Urinary tract infection, site not specified; E87.1 Hypo-osmolality and hyponatremia; C79.31 Secondary malignant neoplasm of brain; I10 Essential (primary) hypertension; C31.9 Malignant neoplasm of accessory sinus, unspecified; E66.01 Morbid (severe) obesity due to excess calories; Z68.33 Body mass index [BMI] 33.0-33.9, adult; R41.82 Altered mental status, unspecified; R51 Headache; E86.0 Dehydration; E11.65 Type 2 diabetes mellitus with hyperglycemia; R00.0 Tachycardia, unspecified; T38.0X5A Adverse effect of glucocorticoids and synthetic analogues, initial encounter; E03.9 Hypothyroidism, unspecified; Z82.49 Family history of ischemic heart disease and other diseases of the circulatory system; E78.5 Hyperlipidemia, unspecified; Z83.3 Family history of diabetes mellitus; E83.42 Hypomagnesemia; I49.3 Ventricular premature depolarization; T36.8X5A Adverse effect of other systemic antibiotics, initial encounter
CPT/HCPCS: 36415; 36569; 36600; 70450; 70487; 71045; 74018; 74230; 80048; 80053; 80061; 80185; 80202; 81001; 82140; 82306; 82550; 82553; 82805; 82947; 82948; 83036; 83605; 83735; 83880; 84100; 84436; 84439; 84443; 84479; 84484; 84550; 85025; 85610; 85651; 85730; 86376; 87040; 87086; 93005; 93306; 93880; 95812; 96367; 96372; 96375; 97139; 99285; J0692; J1100; J1165; J2060; J2270; J2405; J2543; J3370; J7030; J7050; J7799; Q2009; Q9967